=== PATIENT | male | born 1935 | race Caucasian/White ===

== ENCOUNTER 2019-01-13 14:02 | Observation (INO) ==
[2019-01-13] MEDS ORDERED: 0.9 % Sodium Chloride 1,000 ML IVC ONE (16:16)
[2019-01-13] MEDS ORDERED: Isovue-370 500 ML BOTTLE IVP ONE (16:16)
--- NOTE | 2019-01-13 16:28 | Emergency Department Note ---
Disposition Clinical Impression: Presacral mass, Rectal pain Disposition: Admitted As Inpatient Condition: Fair Referrals: Tony Shaffer MD [Primary Care Provider] - Forms: ED Satisfaction Letter, Work/School Release Time of Disposition: 21:28 General Adult HPI - General Chief complaint: ED Abdominal Pain Stated complaint: Rectal pain needs ct Time Seen by Provider: 01/13/19 16:13 Source: patient, family Mode of arrival: ambulatory Limitations: no limitations Nursing Notes Reviewed: Yes Vital Signs Reviewed: Yes - History of Present Illness HPI Narrative: patient presents to the ED with rectal pain. Has a h/o rectal cancer and is s/p rectal removal and has ostomy. Patient states had an abscess a few months ago that was needle aspirated in the ED. He saw Dr. Neves with oncology today and was sent over for CT abd/pelvis. Patient reports increasing pain in his rectum and LEFT buttock. HE denies fever, chills, chest pain, shortness of breath. No abdominal pain, n/v or increase from ostomy output. states they wanted to make sure there wasn't a deeper abscess Pain Scale: 8 - Related Data Home Medications Medication Instructions Recorded Confirmed Albuterol Neb [AccuNeb] 0.63 mg IH Q6H PRN 01/22/17 01/13/19 Albuterol Sulfate [Albuterol 2 puff IH BID 01/22/17 01/13/19 Inhaler] Clopidogrel [Plavix] 75 mg PO DAILY 01/22/17 01/13/19 Cyanocobalamin (B-12) [Vitamin B12] 3,000 mcg PO DAILY 01/22/17 01/13/19 Finasteride [Proscar] 5 mg PO DAILY 01/22/17 01/13/19 Fluticasone/Salmeterol [Advair 1 puff IH BID 01/22/17 01/13/19 250-50 Diskus] Montelukast [Singulair] 10 mg PO DAILY 01/22/17 01/13/19 Multivitamin [Multivitamins] 1 tab PO DAILY 04/13/17 01/13/19 Saxagliptin HCl [Onglyza] 2.5 mg PO DAILY 04/13/17 01/13/19 Apixaban [Eliquis] 2.5 mg PO BID 03/03/18 01/13/19 Docusate Sodium [Dok] 100 mg PO BID 03/03/18 01/13/19 Previous Rx's Medication Instructions Recorded RX: Simethicone [Bicarsim] 80 mg PO BID #80 tablet 05/03/18 RX: Oxybutynin [Ditropan] 5 mg PO TID #90 tablet 06/24/18 Cyclobenzaprine [Flexeril] 10 mg PO BID PRN #60 tablet 11/25/18 RX: Gabapentin [Neurontin] 300 mg PO TID #90 capsule 11/25/18 RX: Morphine Immed Rel [Morphine 15 mg PO Q4HR PRN 30 Days #180 tab 11/25/18 Sulfate] RX: Gabapentin [Neurontin] 300 mg PO TID 30 Days #90 capsule 12/28/18 Allergies Allergy/AdvReac Type Severity Reaction Status Date / Time lisinopril Allergy Joint Pain Verified 01/13/19 14:27 lovastatin Allergy Hives Verified 01/13/19 14:27 nitrofurantoin Allergy Hives Verified 01/13/19 14:27 [From Macrobid] rosuvastatin Allergy Hives Verified 01/13/19 14:27 simvastatin Allergy Hives Verified 01/13/19 14:27 Review of Systems: As reviewed in the HPI. All other systems reviewed are negative or normal. All systems ED: reviewed and negative except as stated. Review of Systems: As Per HPI Past Medical History - Past Medical History Attestation: Yes The following information was validated with the patient. Source: patient Medical history: Reports: atrial fibrillation, cancer, COPD Surgical history: Reports: non-contributory, other Psychiatric history: Reports: no psych history - Social History Smoking Status: Current every day smoker Smokeless Tobacco Status: No Alcohol use: Reports: occasionally Drug use: Reports: none Physical Exam CONSTITUTIONAL: [well appearing, alert and in no acute distress] EYES: [EOMI, clear conjunctiva, PERRLA] HENT: [Normocephalic, atraumatic, moist mucus membranes, normal oropharynx] NECK: [normal inspection, full ROM, trachea midline, no obvious swelling] PULMONARY: [normal lung sounds bilaterally, normal chest rise and fall, no respiratory distress or stridor, no wheezes, no rales, no rhonchi CARDIOVASCULAR: [regular rate, regular rhythm, normal heart sounds, no murmurs, distal extremities are warm and well perfused] GASTROINSTESTINAL: [soft, non-tender, non-rigid, non-distended, no guarding, no rebound, normal bowel sounds, ostomy output normal with ostomy pink and viable] GENITOURINARY/RECTAL: [patient has a small round mass overlying the LEFT ischial tuberosity that is tender, no obvious external signs of infection] NEUROLOGIC: [Alert, oriented x3, normal speech, moves all extremities] EXTREMITIES: [Normal inspection, full ROM, no tenderness, no pedal edema, normal capillary refill] MUSCULOSKELETAL: [no gross deformities, atraumatic] SKIN: [No cyanosis, no diaphoresis, normal color, warm, no rash] PSYCHIATRIC: [normal mood and affect] Course Course Narrative: will get CT to eval for abscess CT shows a pre-sacral fluid collection c/w previously found collection that was drained. Will start on ABX and admit overnight for obs and IR drainage in the AM. Does not meet sepsis criteria. Vital Signs Temperature 97.9 F 01/13/19 14:24 Pulse Rate 102 01/13/19 14:24 Respiratory Rate 16 01/13/19 14:24 Blood Pressure 126/74 01/13/19 14:24 O2 Sat by Pulse Oximetry 95 01/13/19 14:24 Temperature 98.4 F 01/13/19 18:14 Pulse Rate 102 01/13/19 20:36 Respiratory Rate 18 01/13/19 20:36 Blood Pressure 169/103 01/13/19 20:36 O2 Sat by Pulse Oximetry 98 01/13/19 20:36 Oxygen Delivery Oxygen Delivery Room Air Medical Decision Making - Lab Data Result diagrams: 01/13/19 16:31 01/13/19 16:31 Lab Results 01/13/19 01/13/19 01/13/19 Range/Units 16:31 16:31 16:31 WBC 8.1 (4.3-11.1) K/mcL RBC 4.79 (4.19-5.50) M/mcL Hgb 13.6 (12.9-16.9) g/dL Hct 41.3 (37.5-50.1) % MCV 86.2 (83.0-100.0) fL MCH 28.4 (28.0-33.3) pg MCHC 32.9 (31.6-35.5) g/dL RDW 16.2 H (11.5-14.5) % Plt Count 223 (140-400) K/mcL MPV 10.8 (9.4-12.4) fL Immature Gran % 0.4 (0-4) % Seg Neutrophils % 75.5 % Lymphocytes % 12.7 % Monocytes % 7.9 % Eosinophils % 3.0 % Basophils % 0.5 % Neutrophils # 6.1 (1.6-8.9) K/mcL Lymphocytes # 1.0 (0.6-4.6) K/mcL Monocytes # 0.6 (0.0-1.3) K/mcL Eosinophils # 0.2 (0.0-0.6) K/mcL Basophils # 0.0 (0.0-0.2) K/mcL PT 12.0 (9.4-12.1) Seconds INR 1.1 Sodium 138 (136-145) mEq/L Potassium 3.8 (3.5-5.1) mEq/L Chloride 102 (98-107) mEq/L Carbon Dioxide 30 H (23-29) mEq/L BUN 18 (8-23) mg/dL Creatinine 0.91 (0.70-1.30) mg/dL Est GFR ( Amer) > 60 (> 60) Est GFR (Non-Af Amer) > 60 (> 60) BUN/Creatinine Ratio 20 (6-26) Glucose 222 H (70-105) mg/dL Calculated Osmolality 295 (280-300) Lactic Acid (0.5-2.2) mmol/L Calcium 9.3 (8.6-10.3) mg/dL Total Bilirubin 0.4 (0.3-1.0) mg/dL Direct Bilirubin 0.1 (0.0-0.2) mg/dL Indirect Bilirubin 0.3 (0.0-1.2) mg/dL AST 9 L (13-39) Units/L ALT 7 (7-52) Units/L Alkaline Phosphatase 63 (34-104) Units/L Serum Total Protein 7.4 (6.4-8.9) g/dL Albumin 4.2 (3.5-5.7) g/dL Globulin 3.2 (2.4-3.5) g/dL Albumin/Globulin Ratio 1.3 (1.1-2.2) Lipase 44 (11-82) Units/L Urine Color (Yellow) Urine Clarity (Clear) Urine pH (5.0-8.0) pH Units Ur Specific [place] (1.010-1.025) Urine Protein (Neg-Trace) mg/dL Urine Glucose (UA) (Normal) mg/dL Urine Ketones (Negative) mg/dL Urine Blood (Negative) Urine Nitrite (Negative) Urine Bilirubin (Negative) Urine Urobilinogen (Normal) mg/dL Ur Leukocyte Esterase (Negative) Urine Microscopic RBC (0-3) per hpf Urine Microscopic WBC (0-3) per hpf Ur Squamous Epith Cells (None-Few) per lpf Urine Bacteria (None-Few) per hpf Hyaline Casts (None-Few) per lpf Ur Culture Indicated? (NO) 01/13/19 01/13/19 01/13/19 Range/Units 16:31 17:23 20:14 WBC (4.3-11.1) K/mcL RBC (4.19-5.50) M/mcL Hgb (12.9-16.9) g/dL Hct (37.5-50.1) % MCV (83.0-100.0) fL MCH (28.0-33.3) pg MCHC (31.6-35.5) g/dL RDW (11.5-14.5) % Plt Count (140-400) K/mcL MPV (9.4-12.4) fL Immature Gran % (0-4) % Seg Neutrophils % % Lymphocytes % % Monocytes % % Eosinophils % % Basophils % % Neutrophils # (1.6-8.9) K/mcL Lymphocytes # (0.6-4.6) K/mcL Monocytes # (0.0-1.3) K/mcL Eosinophils # (0.0-0.6) K/mcL Basophils # (0.0-0.2) K/mcL PT (9.4-12.1) Seconds INR Sodium (136-145) mEq/L Potassium (3.5-5.1) mEq/L Chloride (98-107) mEq/L Carbon Dioxide (23-29) mEq/L BUN (8-23) mg/dL Creatinine (0.70-1.30) mg/dL Est GFR ( Amer) (> 60) Est GFR (Non-Af Amer) (> 60) BUN/Creatinine Ratio (6-26) Glucose (70-105) mg/dL Calculated Osmolality (280-300) Lactic Acid 2.3 H 1.8 (0.5-2.2) mmol/L Calcium (8.6-10.3) mg/dL Total Bilirubin (0.3-1.0) mg/dL Direct Bilirubin (0.0-0.2) mg/dL Indirect Bilirubin (0.0-1.2) mg/dL AST (13-39) Units/L ALT (7-52) Units/L Alkaline Phosphatase (34-104) Units/L Serum Total Protein (6.4-8.9) g/dL Albumin (3.5-5.7) g/dL Globulin (2.4-3.5) g/dL Albumin/Globulin Ratio (1.1-2.2) Lipase (11-82) Units/L Urine Color [place] A (Yellow) Urine Clarity Clear (Clear) Urine pH 5.5 (5.0-8.0) pH Units Ur Specific [place] 1.013 (1.010-1.025) Urine Protein Negative (Neg-Trace) mg/dL Urine Glucose (UA) Normal (Normal) mg/dL Urine Ketones Negative (Negative) mg/dL Urine Blood Negative (Negative) Urine Nitrite Positive A (Negative) Urine Bilirubin Small H (Negative) Urine Urobilinogen Normal (Normal) mg/dL Ur Leukocyte Esterase Trace H (Negative) Urine Microscopic RBC 0-3 (0-3) per hpf Urine Microscopic WBC 0-3 (0-3) per hpf Ur Squamous Epith Cells Moderate H (None-Few) per lpf Urine Bacteria None Seen (None-Few) per hpf Hyaline Casts None Seen (None-Few) per lpf Ur Culture Indicated? YES A (NO) Attestation Statement - Attestation Attestation: Resident Attestation: I examined this patient and my medical decision making was reviewed with the Resident Physician. I agree with the documented findings, disposition and treatment plan as described except to the extent set forth below. We independently had [id number] contact with the patient. Patient presenting for evaluation of pain to the left gluteus as well as rectal pain. Patient history of rectal cancer as well as surgery. Patient with drainage of fluid from this area in the past. Patient concern for reflection of this fluid. On exam patient has tenderness to left shield tuberosity region. No overlying erythema or drainage. The patient's rectal pain he states has been getting better over the last 1-2 days. Further workup in regards to possible abscess has been initiated. CT scan concerning for possible cellulitis as well as presacral fluid collection with abscess not being able to be ruled out. Patient is not febrile and is not systemically ill. Given the fat stranding and concern for cellulitis as well as fat stranding around the fluid collection concern. Unable to rule out abscess at this time. Patient will be placed on antibiotics. Patient will undergo further evaluation with the hospital. Patient admitted to the hospital service.
[2019-01-13 16:44] LABS: Basophils % 0.5 %; Eosinophils # 0.2 K/mcL (0.0-0.6); Hematocrit 41.3 % (37.5-50.1); Hemoglobin 13.6 g/dL (12.9-16.9); Immature Granulocytes % 0.4 % (0-4); Lymphocytes % 12.7 %; Mean Corpuscular HGB Conc 32.9 g/dL (31.6-35.5); Mean Corpuscular Hemoglobin 28.4 pg (28.0-33.3); Mean Corpuscular Volume 86.2 fL (83.0-100.0); Mean Platelet Volume 10.8 fL (9.4-12.4); Monocytes # 0.6 K/mcL (0.0-1.3); Monocytes % 7.9 %; Neutrophils # 6.1 K/mcL (1.6-8.9); Platelet Count 223 K/mcL (140-400); Red Blood Count 4.79 M/mcL (4.19-5.50); Red Cell Distribution Width 16.2 % (11.5-14.5); Segmented Neutrophils % 75.5 %
[2019-01-13 16:51] LABS: INR 1.1
[2019-01-13 17:04] LABS: Alanine Aminotransferase 7 Units/L (7-52); Albumin 4.2 g/dL (3.5-5.7); Albumin/Globulin Ratio 1.3 (1.1-2.2); Alkaline Phosphatase 63 Units/L (34-104); Aspartate Amino Transferase 9 Units/L (13-39); BUN/Creatinine Ratio 20 (6-26); Bilirubin,Direct 0.1 mg/dL (0.0-0.2); Bilirubin,Indirect 0.3 mg/dL (0.0-1.2); Bilirubin,Total 0.4 mg/dL (0.3-1.0); Blood Urea Nitrogen 18 mg/dL (8-23); Calcium 9.3 mg/dL (8.6-10.3); Carbon Dioxide 30 mEq/L (23-29); Chloride 102 mEq/L (98-107); Globulin 3.2 g/dL (2.4-3.5); Glucose 222 mg/dL (70-105); Lipase 44 Units/L (11-82); Osmolality,Calculated 295 (280-300); Potassium 3.8 mEq/L (3.5-5.1); Sodium 138 mEq/L (136-145); Total Protein 7.4 g/dL (6.4-8.9); eGFR For Non-African Americans > 60 (> 60)
[2019-01-13 17:42] LABS: Bilirubin,Urine Small (Negative); Blood,Urine Negative (Negative); Clarity,Urine Clear (Clear); Color,Urine Orange (Yellow); Glucose,Urine (UA) Normal (Normal); Ketones,Urine Negative (Negative); Leukocyte Esterase,Urine Trace (Negative); Nitrite,Urine Positive (Negative); PH,Urine 5.5 pH Units (5.0-8.0); Protein,Urine Negative (Neg-Trace); Specific Gravity,Urine 1.013 (1.010-1.025); Urobilinogen,Urine Normal (Normal)
[2019-01-13 17:45] LABS: Bacteria,Urine None Seen per hpf (None-Few); Hyaline Casts,Urine None Seen per lpf (None-Few); RBC,Urine 0-3 per hpf (0-3); Squamous Epithelial Cell,Urine Moderate per lpf (None-Few); WBC,Urine 0-3 per hpf (0-3)
[2019-01-13] MEDS ORDERED: *HR* Morphine Immed Rel 15 MG TABLET PO STA (18:09)
[2019-01-13] MEDS ORDERED: Piperacillin/Tazobactam 3.375 GM in Water for inj. (sterile) 20 ML 20 ML IVP ONE (19:43)
[2019-01-13] MEDS ORDERED: Ondansetron 4 MG/2 ML VIAL IVP PRN (21:07)
[2019-01-13] MEDS ORDERED: Acetaminophen 325 MG TABLET PO PRN (21:07)
[2019-01-13] MEDS ORDERED: Naloxone 0.4 MG/ML INJ IVP PRN (21:07)
[2019-01-13] MEDS ORDERED: Albuterol Neb 0.63 MG/3 ML VIAL IH PRN (21:08)
[2019-01-13] MEDS ORDERED: *HR* Dextrose 50 % in Water (Syg) 50 ML SYRINGE IVP PRN (23:31)
[2019-01-13] MEDS ORDERED: D5% in Water 1,000 ML IVC PRN (23:31)
[2019-01-13] MEDS ORDERED: Dextrose Gel 15 GM/37.5 ML TUBE PO PRN ×2 (23:31)
--- NOTE | 2019-01-13 23:31 | Internal Med History&Physical ---
Date of Encounter: 01/13/19 Time of Encounter: 23:28 Internal Medicine - H&P: HPI Chief complaint: Sacral Pain Admitted From: Emergency Dept Plans for Post Hospital Care: Home History of present illness: Mr. Goodrich is a 83 year old male with history of rectal cancer who presents with sacral pain. Patient states he has been worsening over the last several days. He states the pain is tracking down his left leg. He states this feels similar to his previous episode where he had fluid drained out of this area. He states he was diagnosed with rectal cancer in September and had surgery at that time. He states he is not on any chemotherapy. He denies any fever, chills, drainage from this area. He denies chest pain, shortness of breath. Discussed with patient and he wishes to be full code. 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 Internal Medicine - H&P: Meds Albuterol Neb [AccuNeb] 0.63 mg IH Q6H PRN 01/22/17 [History] Albuterol Sulfate [Albuterol Inhaler] 2 puff IH BID 01/22/17 [History] Clopidogrel [Plavix] 75 mg PO DAILY 01/22/17 [History] Cyanocobalamin (B-12) [Vitamin B12] 3,000 mcg PO DAILY 01/22/17 [History] Finasteride [Proscar] 5 mg PO DAILY 01/22/17 [History] Fluticasone/Salmeterol [Advair 250-50 Diskus] 1 puff IH BID 01/22/17 [History] Montelukast [Singulair] 10 mg PO DAILY 01/22/17 [History] Multivitamin [Multivitamins] 1 tab PO DAILY 04/13/17 [History] Saxagliptin HCl [Onglyza] 2.5 mg PO DAILY 04/13/17 [History] Apixaban [Eliquis] 2.5 mg PO BID 03/03/18 [History] Docusate Sodium [Dok] 100 mg PO BID 03/03/18 [History] Simethicone [Bicarsim] 80 mg PO BID #80 tablet 05/03/18 [Rx] Oxybutynin [Ditropan] 5 mg PO TID #90 tablet 06/24/18 [Rx] Cyclobenzaprine [Flexeril] 10 mg PO BID PRN #60 tablet 11/25/18 [Rx] Gabapentin [Neurontin] 300 mg PO TID #90 capsule 11/25/18 [Rx] Morphine Immed Rel [Morphine Sulfate] 15 mg PO Q4HR PRN 30 Days #180 tab 11/25/18 [Rx] Gabapentin [Neurontin] 300 mg PO TID 30 Days #90 capsule 12/28/18 [Rx] Allergy/AdvReac Type Severity Reaction Status Date / Time lisinopril Allergy Joint Pain Verified 01/13/19 14:27 lovastatin Allergy Hives Verified 01/13/19 14:27 nitrofurantoin Allergy Hives Verified 01/13/19 14:27 [From Macrobid] rosuvastatin Allergy Hives Verified 01/13/19 14:27 simvastatin Allergy Hives Verified 01/13/19 14:27 All Systems PM: A 10-system review of systems was performed and is negative for pertinent findings except as documented above in the HPI. Review of systems: 10 point review of systems was obtained and is negative other than stated. - Constitutional Constitutional: no chills, no fever(s) - Cardiovascular Cardiovascular ROS IM: no chest pain - Respiratory Respiratory: no dyspnea - Musculoskeletal Musculoskeletal ROS IM: back pain (sacrum) - Constitutional Vitals: Temp Pulse Resp BP Pulse Ox 98.7 F 103 17 133/84 98 01/13/19 22:43 01/13/19 22:43 01/13/19 22:43 01/13/19 22:43 01/13/19 22:43 General appearance: Present: A&O X 3, pleasant, no acute distress Exam: . - Head Head exam: Present: atraumatic, normal inspection, normocephalic - Eye Eye exam: Present: EOMI, PERRL - ENT ENT exam: Present: mucous membranes moist - Respiratory Respiratory exam: Present: CTAB. Absent: rales, rhonchi, wheezes - Cardiovascular Cardiovascular exam: Present: tachycardia. Absent: gallop, rubs, systolic murmur - GI/Abdominal GI/Abdominal exam: Present: normal bowel sounds, soft. Absent: distended, tenderness Additional comments: Colostomy present - Extremities Exam Extremities exam: Present: warm. Absent: pedal edema, tenderness - Back Exam Additional comments: No erythema or palpable fluid collection noted in the sacral area. Mildly tender to palpation. No erythema down the leg. - Neurological Exam Neurological exam: Present: alert, CN II-XII intact, oriented X3, no focal deficits - Psychiatric Psychiatric exam: Present: normal affect, normal mood - Skin Skin exam: Present: dry, intact, warm Internal Med - H&P Results - Labs CBC & Chem 7: 01/13/19 16:31 01/13/19 16:31 Labs: Short CBC 01/13/19 Range/Units 16:31 WBC 8.1 (4.3-11.1) K/mcL Hgb 13.6 (12.9-16.9) g/dL Hct 41.3 (37.5-50.1) % Plt Count 223 (140-400) K/mcL Neutrophils # 6.1 (1.6-8.9) K/mcL BMP 01/13/19 16:31 Sodium 138 Potassium 3.8 Chloride 102 Carbon Dioxide 30 H BUN 18 Creatinine 0.91 Glucose 222 H Calcium 9.3 Liver Function 01/13/19 Range/Units 16:31 Total Bilirubin 0.4 (0.3-1.0) mg/dL Direct Bilirubin 0.1 (0.0-0.2) mg/dL AST 9 L (13-39) Units/L ALT 7 (7-52) Units/L Alkaline Phosphatase 63 (34-104) Units/L Albumin 4.2 (3.5-5.7) g/dL Urine 01/13/19 Range/Units 17:23 Urine Color [place] A (Yellow) Urine Clarity Clear (Clear) Urine pH 5.5 (5.0-8.0) pH Units Ur Specific [place] 1.013 (1.010-1.025) Urine Protein Negative (Neg-Trace) mg/dL Urine Glucose (UA) Normal (Normal) mg/dL - Impressions ITS Impressions Abdomen/Pelvis CT 01/13/19 16:16 IMPRESSION: There is a nonspecific presacral fluid collection measuring 4.8 x 3.1 cm. That could represent a postsurgical seroma or hematoma. However, an abscess does remain a consideration. No other postsurgical studies are present to gauge stability of that collection. There is mild fat stranding within the subcutaneous fat within the gluteal region, which is nonspecific and likely of no clinical significance. Correlate with any clinical evidence of cellulitis. No abscesses are found within the soft tissues of the gluteal region. Redemonstration of an indeterminate low-density lesion within the superior pole left kidney. Continued surveillance of that is recommended. Bilateral nonobstructing punctate nephrolithiasis. D/ / Lukas Avitia MD / Lukas Avitia MD Interpreting Provider: Lukas Avitia MD - Assessment and Plan (1) Postoperative seroma Current Visit: Yes Status: Suspected Assessment and plan: CT shows a presacral fluid collection measuring 4.8 x 3.1 cm. Likely indicative of a postsurgical seroma, hematoma is also considered given the patient is on anticoagulation however CBC is stable. Abscess is also on the differential however patient has no signs or symptoms of infection so this is less likely. Patient has had this before and has been drained by IR. Keep patient nothing by mouth consult interventional radiology for drainage in the morning. Qualifiers: Surgical complication system/body Area: musculoskeletal system Procedure type: non-musculoskeletal Qualified Code(s): M96.843 - Postprocedural seroma of a musculoskeletal structure following other procedure (2) COPD (chronic obstructive pulmonary disease) Current Visit: Yes Status: Acute Assessment and plan: Stable. No evidence of acute exacerbation. Continue home medications. Qualifiers: COPD type: unspecified COPD Qualified Code(s): J44.9 - Chronic obstructive pulmonary disease, unspecified (3) A-fib Current Visit: Yes Status: Acute Assessment and plan: EKG reviewed shows atrial fibrillation, is not on any rate controlling medications at home. We will start low-dose beta ariadne. Hold anticoagulation in anticipation of procedure. Qualifiers: Atrial fibrillation type: paroxysmal Qualified Code(s): I48.0 - Paroxysmal atrial fibrillation (4) Type 2 diabetes mellitus Current Visit: Yes Status: Acute Assessment and plan: Blood sugar under good control at this time. Sliding scale insulin coverage. Adjust as necessary. Qualifiers: Diabetes mellitus fci insulin use: without fci use Diabetes mellitus complication status: without complication Qualified Code(s): E11.9 - Type 2 diabetes mellitus without complications (5) Rectal cancer Current Visit: No Status: Acute Assessment and plan: History of. Not on any treatment at this time and does not wish to continue with any treatment. He states he is much improved since surgery. Continued outpatient follow-up with oncology. (6) DVT prophylaxis Current Visit: Yes Status: Acute Assessment and plan: EPCDs - Time Spent With Patient Total time spent is greater than 50% in coordination of care (as documented) at patient's floor/unit and/or counseling patient:
[2019-01-14] MEDS: Insulin LISPRO 300 UNITS/3 ML VIAL SQ SCH ×2 (00:38→06:08)
[2019-01-14] MEDS: *HR* Morphine Immed Rel 15 MG TABLET PO PRN ×2 (02:41→11:40)
[2019-01-14 05:22] LABS: Basophils % 0.6 %; Eosinophils # 0.4 K/mcL (0.0-0.6); Eosinophils % 5.4 %; Hematocrit 38.5 % (37.5-50.1); Hemoglobin 12.8 g/dL (12.9-16.9); Immature Granulocytes % 0.4 % (0-4); Lymphocytes # 0.9 K/mcL (0.6-4.6); Lymphocytes % 13.6 %; Mean Corpuscular HGB Conc 33.2 g/dL (31.6-35.5); Mean Corpuscular Hemoglobin 28.3 pg (28.0-33.3); Mean Platelet Volume 10.9 fL (9.4-12.4); Monocytes # 0.7 K/mcL (0.0-1.3); Monocytes % 10.2 %; Neutrophils # 4.8 K/mcL (1.6-8.9); Platelet Count 207 K/mcL (140-400); Red Blood Count 4.53 M/mcL (4.19-5.50); Red Cell Distribution Width 16.4 % (11.5-14.5); Segmented Neutrophils % 69.8 %
[2019-01-14 05:24] LABS: Prothrombin Time 11.3 Seconds (9.4-12.1)
[2019-01-14 05:40] LABS: BUN/Creatinine Ratio 21 (6-26); Blood Urea Nitrogen 16 mg/dL (8-23); Calcium 8.7 mg/dL (8.6-10.3); Carbon Dioxide 27 mEq/L (23-29); Chloride 108 mEq/L (98-107); Glucose 119 mg/dL (70-105); Magnesium 1.8 mg/dL (1.6-2.6); Osmolality,Calculated 296 (280-300); Potassium 3.7 mEq/L (3.5-5.1); Sodium 142 mEq/L (136-145); eGFR For Non-African Americans > 60 (> 60)
[2019-01-14] MEDS ORDERED: Finasteride 5 MG TABLET PO SCH (09:00)
[2019-01-14] MEDS ORDERED: Metoprolol XL (24 HR) Succ 25 MG TAB.ER.24H PO SCH (09:00)
[2019-01-14] MEDS: Gabapentin 300 MG CAPSULE PO SCH ×2 (09:10→16:02)
[2019-01-14] MEDS ORDERED: Budesonide/Formoterol 160/4.5 1 PUFF INH IH SCH (10:00)
--- NOTE | 2019-01-14 10:20 | Internal Med Progress Note ---
<Trino Ramesh N - Last Filed: 01/14/19 13:32> Hospitalist Progress Note - Encounter Date of Encounter: 01/14/19 Time of Encounter: 10:20 - Subjective Interval History: Patient seen and examined at bedside. complains of sharp burning pain in the chiquita-sacral and gluteal region. Pain radiates down the posterior aspect of the leg to the level of the knee. Interventional radiology reviewed the images and do not believe the likely seroma warrants drainage at this time. Low suspicion for abscess. Previously drained in November and is similar in size as then. Patient denies fevers or chills. - Exam Vitals: Temp Pulse Resp BP Pulse Ox 98.7 F 93 16 151/77 96 01/14/19 08:34 01/14/19 08:34 01/14/19 10:12 01/14/19 08:34 01/14/19 10:12 Exam: General: Alert and oriented, no acute distress, frail appearing HEENT: Head is atraumatic and normocephalic, pupils are equal and round, and extraocular muscles are intact Neck: no JVD, trachea midline Chest: symmetrical chest wall rise, no tenderness to palpation Cardiovascular: RRR, no murmurs Respiratory: CTA b/l, no rales ronchi or wheezing Abdomen: soft nontender, no guarding or rigidity Extremities: no cyanosis, clubbing or edema. Pain on palpation in the left gluteal region. Pain with straight leg raise of left leg. Skin: no jaundice, no lesions Neurological: no obvious focal neurological deficits. straight leg raise positive on left, negative on right. Psych: appropriate mood and affect - Assessment and Plan (1) Sciatica Current Visit: Yes Status: Acute Assessment and Plan: Patient has left sided gluteal pain, worse with palpation of the region of the piriformis muscle, with "burning" pain that radiates down the posterior aspect of his leg to the level of his knee. Pain was also improved with his home dose flexeril Positive straight leg raise on the left, negative on right strength and sensation intact bilaterally otherwise, reflexes intact Suspect sciatic nerve pain patient is on gabapentin, unknown if for diabetic neuropathy vs. previously diagnosed sciatica. Will continue patient's home gabapentin and flexeril Obtain MR lumbar spine to rule out impingement or stenosis f/u outpatient for continued management, PT, and pain management (2) Seroma Current Visit: Yes Status: Acute Assessment and Plan: redemonstration of previously drained seroma measuring 4.8 x 3.1. do not suspect abscess as patient is afebrile and denies chills. Interventional radiology reviewed the images and do not recommend draining the seroma at this time Do not suspect patient's gluteal pain radiating posteriorly to the knee is secondary to the seroma, sciatic nerve pain is higher on the differential (3) COPD (chronic obstructive pulmonary disease) Current Visit: Yes Status: Acute Assessment and Plan: not in exacerbation continue home meds (4) A-fib Current Visit: Yes Status: Acute Assessment and Plan: startedlow dose beta ariadne IR does not recommend procedure, will restart anticoagulation (5) Type 2 diabetes mellitus Current Visit: Yes Status: Acute Assessment and Plan: Low dose SSI Q6 accuchecks (6) DVT prophylaxis Current Visit: Yes Status: Acute Assessment and Plan: restarted home anticoagulation - Time Spent with Patient Total time spent is greater than 50% in coordination of care (as documented) at patient's floor/unit and/or counseling patient: Internal Medicine: Result - Labs CBC & Chem 7: 01/14/19 04:48 01/14/19 04:48 Labs: Short CBC 01/13/19 01/14/19 Range/Units 16:31 04:48 WBC 8.1 6.9 (4.3-11.1) K/mcL Hgb 13.6 12.8 L (12.9-16.9) g/dL Hct 41.3 38.5 (37.5-50.1) % Plt Count 223 207 (140-400) K/mcL Neutrophils # 6.1 4.8 (1.6-8.9) K/mcL BMP 01/13/19 01/14/19 16:31 04:48 Sodium 138 142 Potassium 3.8 3.7 Chloride 102 108 H Carbon Dioxide 30 H 27 BUN 18 16 Creatinine 0.91 0.75 Glucose 222 H 119 H Calcium 9.3 8.7 Liver Function 01/13/19 Range/Units 16:31 Total Bilirubin 0.4 (0.3-1.0) mg/dL Direct Bilirubin 0.1 (0.0-0.2) mg/dL AST 9 L (13-39) Units/L ALT 7 (7-52) Units/L Alkaline Phosphatase 63 (34-104) Units/L Albumin 4.2 (3.5-5.7) g/dL Urine 01/13/19 Range/Units 17:23 Urine Color [place] A (Yellow) Urine Clarity Clear (Clear) Urine pH 5.5 (5.0-8.0) pH Units Ur Specific [place] 1.013 (1.010-1.025) Urine Protein Negative (Neg-Trace) mg/dL Urine Glucose (UA) Normal (Normal) mg/dL - ABG Interpretation ABG results: PT/INR, D-dimer PT 11.3 Seconds (9.4-12.1) 01/14/19 04:48 - Impressions Impressions Abdomen/Pelvis CT 01/13/19 16:16 IMPRESSION: There is a nonspecific presacral fluid collection measuring 4.8 x 3.1 cm. That could represent a postsurgical seroma or hematoma. However, an abscess does remain a consideration. No other postsurgical studies are present to gauge stability of that collection. There is mild fat stranding within the subcutaneous fat within the gluteal region, which is nonspecific and likely of no clinical significance. Correlate with any clinical evidence of cellulitis. No abscesses are found within the soft tissues of the gluteal region. Redemonstration of an indeterminate low-density lesion within the superior pole left kidney. Continued surveillance of that is recommended. Bilateral nonobstructing punctate nephrolithiasis. D/ / Lukas Avitia MD / Lukas Avitia MD Interpreting Provider: Lukas Avitia MD Consult Discharge Plan - Plan Instructions: Sciatica (GEN) Referrals: Tony Shaffer MD [Primary Care Provider] - Prescriptions: PredniSONE [Deltasone] See Taper PO TAPER 15 Days #30 tablet <Oleg Mohr - Last Filed: 01/14/19 18:11> Hospitalist Progress Note - Encounter Date of Encounter: 01/14/19 - Exam Vitals: Temp Pulse Resp BP Pulse Ox 98.0 F 79 15 104/63 95 01/14/19 15:16 01/14/19 15:16 01/14/19 15:16 01/14/19 15:16 01/14/19 15:16 - Assessment and Plan (1) Rectal cancer Current Visit: No Status: Acute (2) COPD (chronic obstructive pulmonary disease) Current Visit: Yes Status: Acute (3) A-fib Current Visit: Yes Status: Acute (4) Type 2 diabetes mellitus Current Visit: Yes Status: Acute (5) Postoperative seroma Current Visit: Yes Status: Suspected (6) Sciatica Current Visit: Yes Status: Acute (7) Tobacco abuse Current Visit: Yes Status: Chronic - Time Spent with Patient Total time spent is greater than 50% in coordination of care (as documented) at patient's floor/unit and/or counseling patient: Internal Medicine: Result - Labs CBC & Chem 7: 01/14/19 04:48 01/14/19 04:48 Labs: Short CBC 01/14/19 Range/Units 04:48 WBC 6.9 (4.3-11.1) K/mcL Hgb 12.8 L (12.9-16.9) g/dL Hct 38.5 (37.5-50.1) % Plt Count 207 (140-400) K/mcL Neutrophils # 4.8 (1.6-8.9) K/mcL BMP 01/14/19 04:48 Sodium 142 Potassium 3.7 Chloride 108 H Carbon Dioxide 27 BUN 16 Creatinine 0.75 Glucose 119 H Calcium 8.7 - ABG Interpretation ABG results: PT/INR, D-dimer PT 11.3 Seconds (9.4-12.1) 01/14/19 04:48 - Impressions Impressions Abdomen/Pelvis CT 01/13/19 16:16 IMPRESSION: There is a nonspecific presacral fluid collection measuring 4.8 x 3.1 cm. That could represent a postsurgical seroma or hematoma. However, an abscess does remain a consideration. No other postsurgical studies are present to gauge stability of that collection. There is mild fat stranding within the subcutaneous fat within the gluteal region, which is nonspecific and likely of no clinical significance. Correlate with any clinical evidence of cellulitis. No abscesses are found within the soft tissues of the gluteal region. Redemonstration of an indeterminate low-density lesion within the superior pole left kidney. Continued surveillance of that is recommended. Bilateral nonobstructing punctate nephrolithiasis. D/ / Lukas Avitia MD / Lukas Avitia MD Interpreting Provider: Lukas Avitia MD Lumbar Spine MRI 01/14/19 12:10 IMPRESSION: 1. Small amount of nonspecific presacral fluid. No adjacent sacral marrow signal abnormality to suggest osteomyelitis. 2. Mild multilevel degenerative disc disease and facet hypertrophy. 3. No spinal canal stenosis. 4. Bilateral L2 through L4 neural foraminal narrowing greatest involving the left L4 neural foramen where it is moderate. D/ / Eder Naranjo / Eder Naranjo Interpreting Provider: Eder Naranjo - Attending Attestation See discharge summary of today. <Trino Ramesh N - Last Filed: 01/14/19 13:32> (3) COPD (chronic obstructive pulmonary disease) Qualifiers: COPD type: unspecified COPD Qualified Code(s): J44.9 - Chronic obstructive pulmonary disease, unspecified (4) A-fib Qualifiers: Atrial fibrillation type: paroxysmal Qualified Code(s): I48.0 - Paroxysmal atrial fibrillation (5) Type 2 diabetes mellitus Qualifiers: Diabetes mellitus fdc insulin use: without long term care administrator use Diabetes mellitus complication status: without complication Qualified Code(s): E11.9 - Type 2 diabetes mellitus without complications <Oleg Mohr A - Last Filed: 01/14/19 18:11> (2) COPD (chronic obstructive pulmonary disease) Qualifiers: COPD type: unspecified COPD Qualified Code(s): J44.9 - Chronic obstructive pulmonary disease, unspecified (3) A-fib Qualifiers: Atrial fibrillation type: paroxysmal Qualified Code(s): I48.0 - Paroxysmal atrial fibrillation (4) Type 2 diabetes mellitus Qualifiers: Diabetes mellitus long term care administrator insulin use: without fdc use Diabetes mellitus complication status: without complication Qualified Code(s): E11.9 - Type 2 diabetes mellitus without complications (5) Postoperative seroma Qualifiers: Surgical complication system/body Area: musculoskeletal system Procedure type: non-musculoskeletal Qualified Code(s): M96.843 - Postprocedural seroma of a musculoskeletal structure following other procedure (6) Sciatica Qualifiers: Laterality: left Qualified Code(s): M54.32 - Sciatica, left side
[2019-01-14 15:18] VITALS: BP 104/63
--- NOTE | 2019-01-14 17:24 | Discharge Summary ---
<Trino Ramesh N - Last Filed: 01/14/19 17:32> - NOTES TO OUTPATIENT PROVIDER Notes to Outpatient Provider: Follow up on sciatic nerve pain. patient DC'd on prednisone taper. May require outpatient physical therapy. continue to monitor Orders not resulted at time of discharge: Pending orders 01/13/19 17:23 Culture,Urine [RM] Stat 01/15/19 04:00 BMP [Basic Metabolic Panel] AM 0400 CBC [Complete Blood Count] [HEME] AM 0400 Magnesium AM 0400 Date of Encounter: 01/14/19 Time of Encounter: 17:22 - Discharge Diagnosis (1) Sciatica Priority: Primary Status: Acute Qualifiers: Laterality: left Qualified Code(s): M54.32 - Sciatica, left side (2) Seroma Priority: Secondary Status: Acute (3) COPD (chronic obstructive pulmonary disease) Priority: Secondary Status: Acute Qualifiers: COPD type: unspecified COPD Qualified Code(s): J44.9 - Chronic obstructive pulmonary disease, unspecified (4) A-fib Priority: Secondary Status: Acute Qualifiers: Atrial fibrillation type: paroxysmal Qualified Code(s): I48.0 - Paroxysmal atrial fibrillation (5) Type 2 diabetes mellitus Priority: Secondary Status: Acute Qualifiers: Diabetes mellitus half-way insulin use: without remote computer terminal operator use Diabetes mellitus complication status: without complication Qualified Code(s): E11.9 - Type 2 diabetes mellitus without complications Hospital course: Mr. Goodrich is a 83 year old male with a history of rectal cancer status post surgery with a postsurgical seroma which was drained in November 2018 who presented for chief complaint of pain in the gluteal region. Patient was advised to present to the emergency department for imaging. CT scan redemonstrated a likely seroma in the pelvis. Interventional radiology was consult that, IR did not believe that this was an abscess and would not benefit from drainage and that patient's pain was unlikely secondary to the fluid collection. On physical examination patient states that he had pain radiating in the gluteal region left of the sacrum which radiated posteriorly down to the level of the knee. Described as sharp and burning. On physical examination pain was exacerbated with straight leg raise and palpation of the piriformis muscle region. Suspect that patient's symptoms are secondary to sciatic nerve pain, they was no weakness, sensory change, or asymmetrical lower extremity reflexes. MRI lumbar spine was obtained to rule out impingement or stenosis. MRI unremarkable. Patient discharged to home with follow-up with his PCP for continued outpatient management and possible physical therapy referral. Discharged with prednisone taper. - Time Spent with Patient Total time spent providing and/or coordinating discharge services: - Discharge Medications Prescriptions: New PredniSONE [Deltasone] See Taper PO TAPER 15 Days #30 tablet Continue Saxagliptin HCl [Onglyza] 2.5 mg PO DAILY Multivitamin [Multivitamins] 1 tab PO DAILY Docusate Sodium [Dok] 100 mg PO BID Apixaban [Eliquis] 2.5 mg PO BID Simethicone [Bicarsim] 80 mg PO BID #80 tablet Oxybutynin [Ditropan] 5 mg PO TID #90 tablet Morphine Immed Rel [Morphine Sulfate] 15 mg PO Q4HR PRN 30 Days #180 tab PRN Reason: Pain Cyclobenzaprine [Flexeril] 10 mg PO BID PRN #60 tablet PRN Reason: Spasms Gabapentin [Neurontin] 300 mg PO TID 30 Days #90 capsule Albuterol Sulfate [Albuterol Inhaler] 2 puff IH BID Albuterol Neb [AccuNeb] 0.63 mg IH Q6H PRN PRN Reason: Shortness Of Breath Cyanocobalamin (B-12) [Vitamin B12] 3,000 mcg PO DAILY Montelukast [Singulair] 10 mg PO DAILY Clopidogrel [Plavix] 75 mg PO DAILY Finasteride [Proscar] 5 mg PO DAILY Fluticasone/Salmeterol [Advair 250-50 Diskus] 1 puff IH BID Home Medications: Albuterol Neb [AccuNeb] 0.63 mg IH Q6H PRN 01/22/17 [History] Albuterol Sulfate [Albuterol Inhaler] 2 puff IH BID 01/22/17 [History] Clopidogrel [Plavix] 75 mg PO DAILY 01/22/17 [History] Cyanocobalamin (B-12) [Vitamin B12] 3,000 mcg PO DAILY 01/22/17 [History] Finasteride [Proscar] 5 mg PO DAILY 01/22/17 [History] Fluticasone/Salmeterol [Advair 250-50 Diskus] 1 puff IH BID 01/22/17 [History] Montelukast [Singulair] 10 mg PO DAILY 01/22/17 [History] Multivitamin [Multivitamins] 1 tab PO DAILY 04/13/17 [History] Saxagliptin HCl [Onglyza] 2.5 mg PO DAILY 04/13/17 [History] Apixaban [Eliquis] 2.5 mg PO BID 03/03/18 [History] Docusate Sodium [Dok] 100 mg PO BID 03/03/18 [History] Simethicone [Bicarsim] 80 mg PO BID #80 tablet 05/03/18 [Rx] Oxybutynin [Ditropan] 5 mg PO TID #90 tablet 06/24/18 [Rx] Cyclobenzaprine [Flexeril] 10 mg PO BID PRN #60 tablet 11/25/18 [Rx] Morphine Immed Rel [Morphine Sulfate] 15 mg PO Q4HR PRN 30 Days #180 tab 11/25/18 [Rx] Gabapentin [Neurontin] 300 mg PO TID 30 Days #90 capsule 12/28/18 [Rx] PredniSONE [Deltasone] See Taper PO TAPER 15 Days #30 tablet 01/14/19 [Rx] Allergies/Adverse Reactions: Allergy/AdvReac Type Severity Reaction Status Date / Time lisinopril Allergy Joint Pain Verified 01/13/19 14:27 lovastatin Allergy Hives Verified 01/13/19 14:27 nitrofurantoin Allergy Hives Verified 01/13/19 14:27 [From Macrobid] rosuvastatin Allergy Hives Verified 01/13/19 14:27 simvastatin Allergy Hives Verified 01/13/19 14:27 Date of admission: 01/13/19 22:41 Primary care physician: Tony Shaffer MD Consults: 01/13/19 21:21 Consult to Interventional Radiology [CONS] Stat Consulting Provider: Radiology Interventional Cols Reason for Consult: Sacral fluid collection, has had drained before Call Completed: No Discharging clinician: Trino Ramesh Anticipated date of discharge: 01/14/19 - Constitutional Vitals: Temp Pulse Resp BP Pulse Ox 98.0 F 79 15 104/63 95 01/14/19 15:16 01/14/19 15:16 01/14/19 15:16 01/14/19 15:16 01/14/19 15:16 General appearance: Present: A&O X 3, pleasant, no acute distress Exam: General: Alert and oriented, no acute distress, frail appearing HEENT: Head is atraumatic and normocephalic, pupils are equal and round, and extraocular muscles are intact Neck: no JVD, trachea midline Chest: symmetrical chest wall rise, no tenderness to palpation Cardiovascular: RRR, no murmurs Respiratory: CTA b/l, no rales ronchi or wheezing Abdomen: soft nontender, no guarding or rigidity Extremities: no cyanosis, clubbing or edema. Pain on palpation in the left gluteal region. Pain with straight leg raise of left leg. Skin: no jaundice, no lesions Neurological: no obvious focal neurological deficits. straight leg raise positive on left, negative on right. Psych: appropriate mood and affect - Patient Status Disposition: Home, Self-Care Condition: Fair Overall status at discharge: patient is progressing back to baseline - Discharge Instructions Instructions: Sciatica (GEN) Follow Up With: Tony Shaffer MD [Primary Care Provider] - - Diet and Activity Activity: increase activity as tolerated Diet: advance to your usual diet <Oleg Mohr - Last Filed: 01/14/19 18:11> Orders not resulted at time of discharge: Pending orders 01/13/19 17:23 Culture,Urine [RM] Stat 01/15/19 04:00 BMP [Basic Metabolic Panel] AM 0400 CBC [Complete Blood Count] [HEME] AM 0400 Magnesium AM 0400 Date of Encounter: 01/14/19 - Discharge Diagnosis (1) Rectal cancer Priority: Secondary Status: Acute (2) COPD (chronic obstructive pulmonary disease) Status: Acute Qualifiers: COPD type: unspecified COPD Qualified Code(s): J44.9 - Chronic obstructive pulmonary disease, unspecified (3) A-fib Status: Acute Qualifiers: Atrial fibrillation type: paroxysmal Qualified Code(s): I48.0 - Paroxysmal atrial fibrillation (4) Type 2 diabetes mellitus Status: Acute Qualifiers: Diabetes mellitus half-way insulin use: without half-way use Diabetes mellitus complication status: without complication Qualified Code(s): E11.9 - Type 2 diabetes mellitus without complications (5) Postoperative seroma Status: Suspected Qualifiers: Surgical complication system/body Area: musculoskeletal system Procedure type: non-musculoskeletal Qualified Code(s): M96.843 - Postprocedural seroma of a musculoskeletal structure following other procedure (6) Sciatica Status: Acute Qualifiers: Laterality: left Qualified Code(s): M54.32 - Sciatica, left side (7) Tobacco abuse Priority: Secondary Status: Chronic Hospital course: Mr. Goodrich is a 83 year old male - Time Spent with Patient Total time spent providing and/or coordinating discharge services: 37min Date of admission: 01/13/19 22:41 Primary care physician: Tony Shaffer MD Consults: 01/13/19 21:21 Consult to Interventional Radiology [CONS] Stat Consulting Provider: Radiology Interventional Cols Reason for Consult: Sacral fluid collection, has had drained before Call Completed: No - Constitutional Vitals: Temp Pulse Resp BP Pulse Ox 98.0 F 79 15 104/63 95 01/14/19 15:16 01/14/19 15:16 01/14/19 15:16 01/14/19 15:16 01/14/19 15:16 - Attending Attestation I examined this patient and my medical decision-making was reviewed with the Resident Physician on 01/14/19. I agree with the documented findings, disposition and treatment plan as described except to the extent set forth below. Mr Goodrich has been in observation for leg pain. He was evaluated for fluid collection and was deemed not to need drained. Symptoms were consistent with sciatic pain. MRI negative for disc issue. He is now afebrile and ready for discharge home. Exam alert Comfortable Mucus membranes dry Heart reg No wheeze abd soft Plan D/C home today.
[2019-01-14] MEDS ORDERED: Insulin LISPRO 300 UNITS/3 ML VIAL SQ SCH (18:00)
[2019-01-14] MEDS ORDERED: Apixaban 2.5 MG TABLET PO SCH (21:00)
== END 2019-01-14 18:32 | disposition home or self-care (01) ==
LOC: EMEROOARM 14:02 → 3ANU 14:02 → SUATTDRO 22:41 → 3ANU 22:50
PROVIDERS: ADMIT Internal Medicine; ATTEND Internal Medicine

== ENCOUNTER 2019-08-25 13:16 | Inpatient (IN) ==
[2019-08-25] MEDS ORDERED: Ipratropium/Albuterol Neb 3 ML IH ONE (13:59)
[2019-08-25] MEDS ORDERED: methylPREDNISolone 125 MG/2 ML VIAL IVP ONE (13:59)
[2019-08-25] MEDS ORDERED: Furosemide 40 MG/4 ML VIAL IVP ONE (14:02)
[2019-08-25 14:21] LABS: Basophils % 0.6 %; Eosinophils # 0.2 K/mcL (0.0-0.6); Eosinophils % 4.4 %; Hematocrit 35.6 % (37.5-50.1); Hemoglobin 12.2 g/dL (12.9-16.9); Immature Granulocytes % 0.2 % (0-4); Lymphocytes # 0.6 K/mcL (0.6-4.6); Lymphocytes % 12.1 %; Mean Corpuscular HGB Conc 34.3 g/dL (31.6-35.5); Mean Corpuscular Hemoglobin 28.1 pg (28.0-33.3); Mean Platelet Volume 11.5 fL (9.4-12.4); Monocytes # 0.5 K/mcL (0.0-1.3); Monocytes % 9.4 %; Neutrophils # 3.5 K/mcL (1.6-8.9); Platelet Count 152 K/mcL (140-400); Red Blood Count 4.34 M/mcL (4.19-5.50); Red Cell Distribution Width 16.5 % (11.5-14.5); Segmented Neutrophils % 73.3 %; White Blood Count 4.8 K/mcL (4.3-11.1)
[2019-08-25 14:48] LABS: BUN/Creatinine Ratio 17 (6-26); Blood Urea Nitrogen 18 mg/dL (8-23); Calcium 9.1 mg/dL (8.6-10.3); Carbon Dioxide 32 mEq/L (23-29); Chloride 99 mEq/L (98-107); Glucose 156 mg/dL (70-105); Osmolality,Calculated 293 (280-300); Potassium 3.8 mEq/L (3.5-5.1); Sodium 139 mEq/L (136-145); Troponin I 0.06 ng/mL (< 0.04); eGFR For African Americans > 60 (> 60); eGFR For Non-African Americans > 60 (> 60)
[2019-08-25] MEDS ORDERED: Aspirin 325 MG TABLET PO ONE (14:50)
[2019-08-25] MEDS ORDERED: *HR* Heparin 5,000 UNIT/ML VIAL IVP ONE (15:23)
[2019-08-25] MEDS ORDERED: *HR* Heparin 5,000 UNIT/ML VIAL IVP PRN (15:23)
[2019-08-25] MEDS ORDERED: Heparin 25,000 UNIT/250 ML D5W 25,000 UNIT/250 ML IV.SOLN IVC SCH ×2 (15:30→23:15)
[2019-08-25] MEDS ORDERED: Naloxone 0.4 MG/ML INJ IVP PRN (15:56)
[2019-08-25] MEDS ORDERED: Ondansetron 4 MG/2 ML VIAL IVP PRN (15:56)
[2019-08-25] MEDS ORDERED: Dextrose Gel 15 GM/37.5 ML TUBE PO PRN ×2 (16:23)
[2019-08-25] MEDS ORDERED: D5% in Water 1,000 ML IVC PRN (16:23)
[2019-08-25] MEDS ORDERED: *HR* Dextrose 50 % in Water (Syg) 50 ML SYRINGE IVP PRN (16:23)
[2019-08-25 16:30] LABS: Heparin anti-factor XA UFH 0.43 IU/mL (0.30-0.70); INR 1.2; Prothrombin Time 13.5 Seconds (9.4-12.1)
[2019-08-25 16:36] LABS: Hematocrit 37.2 % (37.5-50.1); Hemoglobin 12.4 g/dL (12.9-16.9); Mean Corpuscular HGB Conc 33.3 g/dL (31.6-35.5); Mean Corpuscular Hemoglobin 27.6 pg (28.0-33.3); Mean Corpuscular Volume 82.7 fL (83.0-100.0); Mean Platelet Volume 11.5 fL (9.4-12.4); Platelet Count 159 K/mcL (140-400); Red Cell Distribution Width 16.7 % (11.5-14.5); White Blood Count 5.6 K/mcL (4.3-11.1)
[2019-08-25] MEDS: Ipratropium/Albuterol Neb 3 ML IH PRN (20:35)
[2019-08-25] MEDS: Budesonide/Formoterol 160/4.5 1 PUFF INH IH SCH (20:35)
[2019-08-25] MEDS ORDERED: Apixaban 2.5 MG TABLET PO SCH (21:00)
[2019-08-25] MEDS: Nicotine 21 MG PATCH.TD24 TD SCH (21:30)
[2019-08-25] MEDS: Insulin LISPRO 300 UNITS/3 ML VIAL SQ SCH (21:31)
[2019-08-25] MEDS: *HR* Heparin 5,000 UNIT/ML VIAL IVP PRN (23:44)
[2019-08-26 02:42] LABS: Hematocrit 33.5 % (37.5-50.1); Hemoglobin 10.6 g/dL (12.9-16.9); Immature Granulocytes % 0.3 % (0-4); Lymphocytes # 0.2 K/mcL (0.6-4.6); Lymphocytes % 6.8 %; Mean Corpuscular HGB Conc 31.6 g/dL (31.6-35.5); Mean Corpuscular Hemoglobin 27.1 pg (28.0-33.3); Mean Corpuscular Volume 85.7 fL (83.0-100.0); Mean Platelet Volume 12.7 fL (9.4-12.4); Monocytes # 0.2 K/mcL (0.0-1.3); Monocytes % 4.8 %; Neutrophils # 2.7 K/mcL (1.6-8.9); Platelet Count 152 K/mcL (140-400); Red Blood Count 3.91 M/mcL (4.19-5.50); Red Cell Distribution Width 16.8 % (11.5-14.5); Segmented Neutrophils % 88.1 %; White Blood Count 3.1 K/mcL (4.3-11.1)
[2019-08-26 03:00] LABS: BUN/Creatinine Ratio 18 (6-26); Blood Urea Nitrogen 24 mg/dL (8-23); Calcium 8.7 mg/dL (8.6-10.3); Carbon Dioxide 33 mEq/L (23-29); Chloride 96 mEq/L (98-107); Chol/HDL Ratio 2.8 (0-4.9); Cholesterol 122 mg/dL (< 200); Glucose 452 mg/dL (70-105); HDL Cholesterol 44 mg/dL (40-59); LDL Cholesterol,Calculated 69 mg/dL (0-99); Osmolality,Calculated 310 (280-300); Potassium 3.9 mEq/L (3.5-5.1); Sodium 138 mEq/L (136-145); Triglycerides 45 mg/dL (< 150); eGFR For African Americans > 60 (> 60); eGFR For Non-African Americans 50 (> 60)
[2019-08-26] MEDS ORDERED: Furosemide 40 MG/4 ML VIAL IVP SCH (09:00)
[2019-08-26 09:17] LABS: Estimated Average Glucose 183 mg/dl
[2019-08-26] MEDS: Nicotine 21 MG PATCH.TD24 TD SCH ×2 (09:27→12:36)
[2019-08-26] MEDS: Insulin LISPRO 300 UNITS/3 ML VIAL SQ SCH ×3 (09:28→17:09)
[2019-08-26] MEDS: *HR* Heparin 5,000 UNIT/ML VIAL IVP PRN (09:31)
[2019-08-26] MEDS ORDERED: Perflutren Lipid Microsphere 1.3 ML in 0.9 % Sodium Chloride 8.7 ML IVP ONE (10:24)
[2019-08-26] MEDS: Budesonide/Formoterol 160/4.5 1 PUFF INH IH SCH ×2 (10:26→20:01)
[2019-08-26] MEDS: Ipratropium/Albuterol Neb 3 ML IH PRN (11:29)
[2019-08-26] MEDS: Pantoprazole 40 MG VIAL IVP SCH ×2 (13:14→17:09)
[2019-08-26 15:04] LABS: Basophils % 0.2 %; Eosinophils # 0.1 K/mcL (0.0-0.6); Eosinophils % 1.9 %; Hemoglobin 11.1 g/dL (12.9-16.9); Immature Granulocytes % 0.3 % (0-4); Lymphocytes # 0.8 K/mcL (0.6-4.6); Lymphocytes % 12.3 %; Mean Corpuscular HGB Conc 33.6 g/dL (31.6-35.5); Mean Corpuscular Volume 83.3 fL (83.0-100.0); Mean Platelet Volume 11.8 fL (9.4-12.4); Monocytes # 0.6 K/mcL (0.0-1.3); Monocytes % 9.9 %; Neutrophils # 4.8 K/mcL (1.6-8.9); Platelet Count 137 K/mcL (140-400); Red Blood Count 3.96 M/mcL (4.19-5.50); Red Cell Distribution Width 16.8 % (11.5-14.5); Segmented Neutrophils % 75.4 %; White Blood Count 6.3 K/mcL (4.3-11.1)
[2019-08-26] MEDS ORDERED: Nitroglycerin 0.4 MG TAB.SUBL SL PRN (15:05)
[2019-08-26] MEDS ORDERED: Fluticasone Propionate Nasal 50 MCG/SPRAY BOTTLE NS PRN (15:05)
[2019-08-26] MEDS: Ipratropium/Albuterol Neb 3 ML IH SCH ×3 (15:35→23:14)
[2019-08-26] MEDS: MethylPREDNISolone 40 MG/ML VIAL IVP SCH (17:09)
[2019-08-26] MEDS ORDERED: Latanoprost 2.5 ML BOTTLE LEFT EYE PRN (21:00)
[2019-08-26] MEDS ORDERED: NON-FORMULARY MEDICATION 1 EACH EACH (Brimonidine Tartrate/Timolol [Combigan 0.2%-0.5% Eye LEFT EYE SCH (21:00)
[2019-08-26] MEDS: Insulin DETEMIR 100 UNIT/ML X5UNITS SQ SCH (22:01)
[2019-08-26] MEDS: Levalbuterol Neb 1.25 MG/3 ML IH SCH (23:39)
[2019-08-27] MEDS: Levalbuterol Neb 1.25 MG/3 ML IH SCH ×2 (04:12→20:00)
[2019-08-27] MEDS: Pantoprazole 40 MG VIAL IVP SCH ×2 (05:34→22:26)
[2019-08-27] MEDS: MethylPREDNISolone 40 MG/ML VIAL IVP SCH ×2 (05:34→22:26)
[2019-08-27 06:05] LABS: Hematocrit 33.2 % (37.5-50.1); Hemoglobin 10.7 g/dL (12.9-16.9); Mean Corpuscular HGB Conc 32.2 g/dL (31.6-35.5); Mean Corpuscular Hemoglobin 27.9 pg (28.0-33.3); Mean Corpuscular Volume 86.5 fL (83.0-100.0); Mean Platelet Volume 12.1 fL (9.4-12.4); Platelet Count 132 K/mcL (140-400); Red Blood Count 3.84 M/mcL (4.19-5.50); Red Cell Distribution Width 16.9 % (11.5-14.5); White Blood Count 5.5 K/mcL (4.3-11.1)
[2019-08-27 06:32] LABS: % Iron Saturation 9 % (20-55); Iron 34 mcg/dL (65-175); Transferrin 261 mg/dL (203-362)
[2019-08-27 06:35] LABS: BUN/Creatinine Ratio 23 (6-26); Blood Urea Nitrogen 28 mg/dL (8-23); Calcium 8.9 mg/dL (8.6-10.3); Carbon Dioxide 28 mEq/L (23-29); Chloride 99 mEq/L (98-107); Glucose 191 mg/dL (70-105); Osmolality,Calculated 297 (280-300); Potassium 4.3 mEq/L (3.5-5.1); Sodium 138 mEq/L (136-145); eGFR For African Americans > 60 (> 60); eGFR For Non-African Americans 57 (> 60)
[2019-08-27] MEDS: Budesonide/Formoterol 160/4.5 1 PUFF INH IH SCH ×2 (20:01→22:26)
[2019-08-27] MEDS ORDERED: Acetaminophen 325 MG TABLET PO ONE (22:21)
[2019-08-27] MEDS: Insulin LISPRO 300 UNITS/3 ML VIAL SQ SCH ×2 (22:25→22:31)
[2019-08-27] MEDS: Finasteride 5 MG TABLET PO SCH (22:26)
[2019-08-27] MEDS: Insulin DETEMIR 100 UNIT/ML X5UNITS SQ SCH (22:37)
[2019-08-28] MEDS: Levalbuterol Neb 1.25 MG/3 ML IH SCH ×8 (00:21→23:32)
[2019-08-28] MEDS: MethylPREDNISolone 40 MG/ML VIAL IVP SCH ×2 (06:22→17:05)
[2019-08-28] MEDS: Pantoprazole 40 MG VIAL IVP SCH ×2 (06:22→17:05)
[2019-08-28 07:46] LABS: Hematocrit 35.5 % (37.5-50.1); Hemoglobin 11.6 g/dL (12.9-16.9); Mean Corpuscular HGB Conc 32.7 g/dL (31.6-35.5); Mean Corpuscular Hemoglobin 28.1 pg (28.0-33.3); Mean Platelet Volume 12.3 fL (9.4-12.4); Platelet Count 132 K/mcL (140-400); Red Blood Count 4.13 M/mcL (4.19-5.50); Red Cell Distribution Width 17.1 % (11.5-14.5); White Blood Count 5.7 K/mcL (4.3-11.1)
[2019-08-28] MEDS: Budesonide/Formoterol 160/4.5 1 PUFF INH IH SCH ×2 (07:59→19:48)
[2019-08-28 08:04] LABS: BUN/Creatinine Ratio 33 (6-26); Blood Urea Nitrogen 39 mg/dL (8-23); Calcium 9.3 mg/dL (8.6-10.3); Carbon Dioxide 34 mEq/L (23-29); Chloride 98 mEq/L (98-107); Glucose 314 mg/dL (70-105); Osmolality,Calculated 309 (280-300); Sodium 139 mEq/L (136-145); eGFR For African Americans > 60 (> 60); eGFR For Non-African Americans 59 (> 60)
[2019-08-28] MEDS: Nicotine 21 MG PATCH.TD24 TD SCH (08:07)
[2019-08-28] MEDS: Finasteride 5 MG TABLET PO SCH (08:07)
[2019-08-28] MEDS: Insulin LISPRO 300 UNITS/3 ML VIAL SQ SCH ×3 (08:42→17:05)
[2019-08-28] MEDS ORDERED: SODIUM CHLORIDE/NAHCO3/KCL/PEG 4,000 ML SOLN.RECON PO ONE (17:00)
[2019-08-28] MEDS: Insulin DETEMIR 100 UNIT/ML X5UNITS SQ SCH (22:40)
[2019-08-29] MEDS: Levalbuterol Neb 1.25 MG/3 ML IH SCH ×5 (04:04→20:17)
[2019-08-29 04:15] LABS: Hematocrit 33.9 % (37.5-50.1); Hemoglobin 11.1 g/dL (12.9-16.9); Mean Corpuscular HGB Conc 32.7 g/dL (31.6-35.5); Mean Corpuscular Hemoglobin 27.8 pg (28.0-33.3); Mean Corpuscular Volume 84.8 fL (83.0-100.0); Mean Platelet Volume 12.1 fL (9.4-12.4); Platelet Count 123 K/mcL (140-400); Red Cell Distribution Width 16.7 % (11.5-14.5); White Blood Count 4.5 K/mcL (4.3-11.1)
[2019-08-29 04:34] LABS: BUN/Creatinine Ratio 30 (6-26); Blood Urea Nitrogen 29 mg/dL (8-23); Calcium 9.1 mg/dL (8.6-10.3); Carbon Dioxide 30 mEq/L (23-29); Chloride 98 mEq/L (98-107); Glucose 255 mg/dL (70-105); Osmolality,Calculated 293 (280-300); Potassium 4.3 mEq/L (3.5-5.1); Sodium 134 mEq/L (136-145); eGFR For African Americans > 60 (> 60); eGFR For Non-African Americans > 60 (> 60)
[2019-08-29] MEDS: MethylPREDNISolone 40 MG/ML VIAL IVP SCH ×3 (06:42→17:12)
[2019-08-29] MEDS: Pantoprazole 40 MG VIAL IVP SCH ×2 (06:43→17:12)
[2019-08-29] MEDS: Budesonide/Formoterol 160/4.5 1 PUFF INH IH SCH ×2 (07:13→20:18)
[2019-08-29] MEDS: Insulin LISPRO 300 UNITS/3 ML VIAL SQ SCH ×3 (08:25→17:11)
[2019-08-29] MEDS: Finasteride 5 MG TABLET PO SCH (10:05)
[2019-08-29] MEDS: Nicotine 21 MG PATCH.TD24 TD SCH (10:07)
[2019-08-29] MEDS ORDERED: *HR* Propofol 200 MG/20 ML VIAL IVP ONE (12:16)
[2019-08-29] MEDS ORDERED: *HR* Etomidate 40 MG/20 ML VIAL IVP ONE (12:16)
[2019-08-29] MEDS ORDERED: Lidocaine -MPF 2% 2 ML VIAL ONE (12:16)
[2019-08-29] MEDS ORDERED: Simethicone 40 MG/0.6 ML MLS IR ONE (12:42)
[2019-08-29] MEDS: 0.9 % Sodium Chloride 1,000 ML IVC SCH (13:25)
[2019-08-29] MEDS ORDERED: *HR* Heparin 5,000 UNIT/ML VIAL IVP PRN (15:13)
[2019-08-29] MEDS ORDERED: *HR* Heparin 5,000 UNIT/ML VIAL IVP ONE (15:13)
[2019-08-29] MEDS: Aspirin 81 MG TAB.CHEW PO SCH (17:07)
[2019-08-29] MEDS: Heparin 25,000 UNIT/250 ML D5W 25,000 UNIT/250 ML IV.SOLN IVC SCH (17:08)
[2019-08-29] MEDS: Insulin DETEMIR 100 UNIT/ML X5UNITS SQ SCH (21:40)
[2019-08-30] MEDS ORDERED: Insulin Human Regular 10 UNIT in 0.9 % Sodium Chloride 10 ML IV ONE (00:32)
[2019-08-30] MEDS: Levalbuterol Neb 1.25 MG/3 ML IH SCH ×7 (00:32→23:56)
[2019-08-30] MEDS: MethylPREDNISolone 40 MG/ML VIAL IVP SCH ×3 (02:38→18:04)
[2019-08-30] MEDS: Pantoprazole 40 MG VIAL IVP SCH (05:07)
[2019-08-30 05:51] LABS: Hemoglobin 10.5 g/dL (12.9-16.9); Mean Corpuscular HGB Conc 31.8 g/dL (31.6-35.5); Mean Corpuscular Hemoglobin 27.4 pg (28.0-33.3); Mean Corpuscular Volume 86.2 fL (83.0-100.0); Mean Platelet Volume 12.9 fL (9.4-12.4); Platelet Count 129 K/mcL (140-400); Red Blood Count 3.83 M/mcL (4.19-5.50); White Blood Count 4.7 K/mcL (4.3-11.1)
[2019-08-30] MEDS: *HR* Heparin 5,000 UNIT/ML VIAL IVP PRN (06:32)
[2019-08-30] MEDS: Budesonide/Formoterol 160/4.5 1 PUFF INH IH SCH ×2 (07:32→20:09)
[2019-08-30] MEDS: Insulin LISPRO 300 UNITS/3 ML VIAL SQ SCH ×3 (09:12→18:04)
[2019-08-30] MEDS: 0.9 % Sodium Chloride 1,000 ML IVC SCH (09:12)
[2019-08-30] MEDS: Nicotine 21 MG PATCH.TD24 TD SCH (09:21)
[2019-08-30] MEDS: Aspirin 81 MG TAB.CHEW PO SCH (09:21)
[2019-08-30] MEDS: Finasteride 5 MG TABLET PO SCH (09:21)
[2019-08-30] MEDS: Azithromycin 500 MG in 0.9 % Sodium Chloride 250 ML IVPB SCH (09:26)
[2019-08-30] MEDS: Fluconazole 200 MG/100 ML 200 MG/100 ML BAG IVPB SCH (11:34)
[2019-08-30] MEDS ORDERED: Simethicone 80 MG TAB.CHEW PO PRN (11:51)
[2019-08-30] MEDS: Heparin 25,000 UNIT/250 ML D5W 25,000 UNIT/250 ML IV.SOLN IVC SCH (16:35)
[2019-08-30] MEDS: Insulin DETEMIR 100 UNIT/ML X5UNITS SQ SCH (20:37)
[2019-08-30] MEDS ORDERED: Metoprolol XL (24 HR) Succ 25 MG TAB.ER.24H PO SCH (21:00)
[2019-08-31] MEDS: MethylPREDNISolone 40 MG/ML VIAL IVP SCH ×3 (01:14→17:25)
[2019-08-31 02:37] LABS: Hematocrit 33.4 % (37.5-50.1); Hemoglobin 11.1 g/dL (12.9-16.9); Immature Granulocytes % 0.2 % (0-4); Lymphocytes # 0.3 K/mcL (0.6-4.6); Lymphocytes % 7.9 %; Mean Corpuscular HGB Conc 33.2 g/dL (31.6-35.5); Mean Corpuscular Hemoglobin 27.5 pg (28.0-33.3); Mean Corpuscular Volume 82.9 fL (83.0-100.0); Mean Platelet Volume 12.7 fL (9.4-12.4); Monocytes # 0.2 K/mcL (0.0-1.3); Monocytes % 5.2 %; Neutrophils # 3.5 K/mcL (1.6-8.9); Platelet Count 123 K/mcL (140-400); Red Blood Count 4.03 M/mcL (4.19-5.50); Red Cell Distribution Width 17.1 % (11.5-14.5); Segmented Neutrophils % 86.7 %; White Blood Count 4.1 K/mcL (4.3-11.1)
[2019-08-31 02:54] LABS: BUN/Creatinine Ratio 31 (6-26); Blood Urea Nitrogen 36 mg/dL (8-23); Calcium 8.9 mg/dL (8.6-10.3); Carbon Dioxide 27 mEq/L (23-29); Chloride 102 mEq/L (98-107); Glucose 193 mg/dL (70-105); Osmolality,Calculated 296 (280-300); Potassium 4.5 mEq/L (3.5-5.1); Sodium 136 mEq/L (136-145); eGFR For African Americans > 60 (> 60); eGFR For Non-African Americans 59 (> 60)
[2019-08-31] MEDS: Levalbuterol Neb 1.25 MG/3 ML IH SCH ×5 (03:46→20:47)
[2019-08-31] MEDS: Budesonide/Formoterol 160/4.5 1 PUFF INH IH SCH ×2 (07:45→20:47)
[2019-08-31] MEDS ORDERED: *HR* Heparin 10,000 UNIT/10 ML VIAL ONE (08:43)
[2019-08-31] MEDS ORDERED: Heparin 1,000 UNITS/500 mL 500 ML ONE (08:43)
[2019-08-31] MEDS ORDERED: 0.9 % Sodium Chloride 2,000 ML ONE (08:43)
[2019-08-31] MEDS ORDERED: ISOVUE-370 200 ML INFUS..BTL ONE (08:43)
[2019-08-31] MEDS ORDERED: Nitroglycerin 1,000 MCG/10 ML VIAL IV ONE (08:44)
[2019-08-31] MEDS ORDERED: *HR* Midazolam HCl 2 MG/2 ML VIAL ONE (09:35)
[2019-08-31] MEDS ORDERED: *HR* FentaNYL (PF) 100 MCG/2 ML VIAL ONE (09:36)
[2019-08-31] MEDS: Finasteride 5 MG TABLET PO SCH (09:41)
[2019-08-31] MEDS: Metoprolol XL (24 HR) Succ 25 MG TAB.ER.24H PO SCH ×2 (09:41→21:11)
[2019-08-31] MEDS: Aspirin 81 MG TAB.CHEW PO SCH (09:41)
[2019-08-31] MEDS: Insulin LISPRO 300 UNITS/3 ML VIAL SQ SCH ×3 (10:13→18:40)
[2019-08-31] MEDS: Azithromycin 500 MG in 0.9 % Sodium Chloride 250 ML IVPB SCH (14:23)
[2019-08-31] MEDS: Nicotine 21 MG PATCH.TD24 TD SCH (14:24)
[2019-08-31] MEDS: Fluconazole 200 MG/100 ML 200 MG/100 ML BAG IVPB SCH (16:02)
[2019-08-31] MEDS: Heparin 25,000 UNIT/250 ML D5W 25,000 UNIT/250 ML IV.SOLN IVC SCH (17:24)
[2019-08-31] MEDS: *HR* Heparin 5,000 UNIT/ML VIAL IVP PRN (17:25)
[2019-08-31] MEDS: Insulin DETEMIR 100 UNIT/ML X5UNITS SQ SCH (21:11)
[2019-08-31] MEDS: Apixaban 5 MG TABLET PO SCH (21:11)
[2019-09-01] MEDS: Levalbuterol Neb 1.25 MG/3 ML IH SCH ×4 (00:02→11:05)
[2019-09-01 05:18] LABS: BUN/Creatinine Ratio 33 (6-26); Blood Urea Nitrogen 39 mg/dL (8-23); Calcium 9.1 mg/dL (8.6-10.3); Carbon Dioxide 27 mEq/L (23-29); Chloride 104 mEq/L (98-107); Glucose 70 mg/dL (70-105); Osmolality,Calculated 296 (280-300); Potassium 4.9 mEq/L (3.5-5.1); Sodium 139 mEq/L (136-145); eGFR For African Americans > 60 (> 60); eGFR For Non-African Americans 58 (> 60)
[2019-09-01] MEDS: MethylPREDNISolone 40 MG/ML VIAL IVP SCH (05:30)
[2019-09-01 06:16] LABS: Basophils % 0.2 %; Hematocrit 35.8 % (37.5-50.1); Hemoglobin 11.5 g/dL (12.9-16.9); Immature Granulocytes % 0.6 % (0-4); Lymphocytes # 0.4 K/mcL (0.6-4.6); Lymphocytes % 8.2 %; Mean Corpuscular HGB Conc 32.1 g/dL (31.6-35.5); Mean Corpuscular Hemoglobin 28.3 pg (28.0-33.3); Mean Platelet Volume 13.3 fL (9.4-12.4); Monocytes # 0.4 K/mcL (0.0-1.3); Monocytes % 7.2 %; Neutrophils # 4.3 K/mcL (1.6-8.9); Platelet Count 120 K/mcL (140-400); Red Blood Count 4.07 M/mcL (4.19-5.50); Red Cell Distribution Width 17.2 % (11.5-14.5); Segmented Neutrophils % 83.8 %; White Blood Count 5.1 K/mcL (4.3-11.1)
[2019-09-01] MEDS: Budesonide/Formoterol 160/4.5 1 PUFF INH IH SCH (07:52)
[2019-09-01] MEDS: Nicotine 21 MG PATCH.TD24 TD SCH ×2 (08:32→08:48)
[2019-09-01] MEDS: Metoprolol XL (24 HR) Succ 25 MG TAB.ER.24H PO SCH (08:33)
[2019-09-01] MEDS: Azithromycin 500 MG in 0.9 % Sodium Chloride 250 ML IVPB SCH (08:33)
[2019-09-01] MEDS: Apixaban 5 MG TABLET PO SCH (08:33)
[2019-09-01] MEDS: Finasteride 5 MG TABLET PO SCH (08:34)
[2019-09-01] MEDS: Insulin LISPRO 300 UNITS/3 ML VIAL SQ SCH ×2 (08:35→12:08)
[2019-09-01] MEDS: Aspirin 81 MG TAB.CHEW PO SCH (08:35)
[2019-09-01] MEDS: Fluconazole 200 MG/100 ML 200 MG/100 ML BAG IVPB SCH (08:36)
[2019-09-01] MEDS ORDERED: predniSONE 20 MG TABLET PO SCH (09:00)
[2019-09-01 10:53] VITALS: BP 107/82
[2019-09-02] MEDS ORDERED: Furosemide 20 MG TABLET PO SCH (09:00)
== END 2019-09-01 16:08 | disposition home health service (06) | DRG 287 ==
LOC: EMEROOARM 13:16 → 2NENU 17:49 → SUATTDRO 17:49 → 2NENU 18:30
PROVIDERS: ADMIT Student in an Organized Health Care Education/Training Program; ATTEND Internal Medicine

== ENCOUNTER 2019-10-21 16:43 | Observation (INO) ==
[2019-10-21 17:31] LABS: Basophils % 0.3 %; Eosinophils # 0.1 K/mcL (0.0-0.6); Eosinophils % 1.3 %; Hemoglobin 11.6 g/dL (12.9-16.9); Immature Granulocytes % 0.7 % (0-4); Lymphocytes # 0.4 K/mcL (0.6-4.6); Lymphocytes % 5.4 %; Mean Corpuscular HGB Conc 33.1 g/dL (31.6-35.5); Mean Corpuscular Hemoglobin 27.9 pg (28.0-33.3); Mean Corpuscular Volume 84.1 fL (83.0-100.0); Mean Platelet Volume 12.9 fL (9.4-12.4); Monocytes # 0.5 K/mcL (0.0-1.3); Monocytes % 6.3 %; Neutrophils # 6.6 K/mcL (1.6-8.9); Platelet Count 141 K/mcL (140-400); Red Blood Count 4.16 M/mcL (4.19-5.50); Red Cell Distribution Width 17.8 % (11.5-14.5); White Blood Count 7.6 K/mcL (4.3-11.1)
[2019-10-21 17:52] LABS: BUN/Creatinine Ratio 28 (6-26); Blood Urea Nitrogen 34 mg/dL (8-23); Calcium 9.4 mg/dL (8.6-10.3); Carbon Dioxide 25 mEq/L (23-29); Chloride 102 mEq/L (98-107); Glucose 256 mg/dL (70-105); Osmolality,Calculated 302 (280-300); Potassium 3.8 mEq/L (3.5-5.1); Sodium 138 mEq/L (136-145); eGFR For African Americans > 60 (> 60); eGFR For Non-African Americans 58 (> 60)
[2019-10-21 17:56] LABS: Troponin I 0.06 ng/mL (< 0.04)
[2019-10-21] MEDS ORDERED: Nitroglycerin 0.4 MG TAB.SUBL SL STA (18:36)
[2019-10-21] MEDS ORDERED: Nitroglycerin 1 INCH/GM PACKET TP ONE (18:36)
[2019-10-21] MEDS ORDERED: Furosemide 40 MG/4 ML VIAL IVP ONE (18:36)
[2019-10-21] MEDS ORDERED: *HR* Dextrose 50 % in Water (Syg) 50 ML SYRINGE IVP PRN (21:21)
[2019-10-21] MEDS ORDERED: Dextrose Gel 15 GM/37.5 ML TUBE PO PRN ×2 (21:21)
[2019-10-21] MEDS ORDERED: Acetaminophen 325 MG TABLET PO PRN (21:23)
[2019-10-21] MEDS ORDERED: Ondansetron 4 MG/2 ML VIAL IVP PRN (21:23)
[2019-10-21] MEDS: Ipratropium/Albuterol Neb 3 ML IH SCH (22:54)
[2019-10-21] MEDS: Budesonide/Formoterol 160/4.5 1 PUFF INH IH SCH (22:55)
[2019-10-21] MEDS: Apixaban 5 MG TABLET PO SCH (23:01)
[2019-10-21] MEDS: Insulin LISPRO 300 UNITS/3 ML VIAL SQ SCH (23:01)
[2019-10-22] MEDS: Ipratropium/Albuterol Neb 3 ML IH SCH (04:30)
[2019-10-22] MEDS: Furosemide 40 MG/4 ML VIAL IVP SCH ×2 (09:31→20:39)
[2019-10-22] MEDS: Metoprolol XL (24 HR) Succ 50 MG TAB.ER.24H PO SCH (09:31)
[2019-10-22] MEDS: Finasteride 5 MG TABLET PO SCH (09:31)
[2019-10-22] MEDS: Apixaban 5 MG TABLET PO SCH ×2 (09:31→20:37)
[2019-10-22] MEDS: Cholecalciferol (D-3) 1,000 UNIT (25MCG) TABLET PO SCH (09:32)
[2019-10-22] MEDS: Cyanocobalamin (B-12) 1,000 MCG TABLET PO SCH (09:32)
[2019-10-22] MEDS: Insulin LISPRO 300 UNITS/3 ML VIAL SQ SCH ×4 (09:34→20:37)
[2019-10-22] MEDS: Budesonide/Formoterol 160/4.5 1 PUFF INH IH SCH ×2 (10:43→20:22)
[2019-10-22] MEDS: Ipratropium/Albuterol Neb 3 ML IH PRN (10:43)
[2019-10-22] MEDS: Nicotine 21 MG PATCH.TD24 TD SCH (16:25)
[2019-10-23] MEDS: Ipratropium/Albuterol Neb 3 ML IH PRN ×2 (02:25→08:18)
[2019-10-23 03:02] LABS: Basophils % 0.4 %; Eosinophils # 0.3 K/mcL (0.0-0.6); Hematocrit 34.3 % (37.5-50.1); Hemoglobin 11.6 g/dL (12.9-16.9); Immature Granulocytes % 0.6 % (0-4); Lymphocytes # 0.7 K/mcL (0.6-4.6); Lymphocytes % 9.8 %; Mean Corpuscular HGB Conc 33.8 g/dL (31.6-35.5); Mean Corpuscular Hemoglobin 27.8 pg (28.0-33.3); Mean Corpuscular Volume 82.1 fL (83.0-100.0); Mean Platelet Volume 11.8 fL (9.4-12.4); Monocytes # 0.8 K/mcL (0.0-1.3); Monocytes % 10.4 %; Neutrophils # 5.4 K/mcL (1.6-8.9); Platelet Count 145 K/mcL (140-400); Red Blood Count 4.18 M/mcL (4.19-5.50); Red Cell Distribution Width 17.7 % (11.5-14.5); Segmented Neutrophils % 74.8 %; White Blood Count 7.2 K/mcL (4.3-11.1)
[2019-10-23 03:11] LABS: BUN/Creatinine Ratio 30 (6-26); Blood Urea Nitrogen 32 mg/dL (8-23); Calcium 8.9 mg/dL (8.6-10.3); Carbon Dioxide 32 mEq/L (23-29); Chloride 96 mEq/L (98-107); Glucose 89 mg/dL (70-105); Magnesium 1.6 mg/dL (1.6-2.6); Osmolality,Calculated 292 (280-300); Sodium 138 mEq/L (136-145); eGFR For African Americans > 60 (> 60); eGFR For Non-African Americans > 60 (> 60)
[2019-10-23 03:23] LABS: Thyroid Stimulating Hormone 4.012 mcIU/mL (0.340-5.600)
[2019-10-23 06:57] LABS: Estimated Average Glucose 206 mg/dl
[2019-10-23 07:42] VITALS: BP 108/84
[2019-10-23] MEDS ORDERED: Furosemide 40 MG TABLET PO SCH (08:00)
[2019-10-23] MEDS ORDERED: Potassium Chloride 40 MEQ, Lidocaine 1% 2 ML in 0.9 % Sodium Chloride 500 ML IVPB ONE (08:01)
[2019-10-23] MEDS: Budesonide/Formoterol 160/4.5 1 PUFF INH IH SCH (08:19)
[2019-10-23] MEDS ORDERED: Spironolactone 25 MG TABLET PO SCH (09:00)
[2019-10-23] MEDS: Insulin LISPRO 300 UNITS/3 ML VIAL SQ SCH ×2 (10:02→13:19)
[2019-10-23] MEDS: Metoprolol XL (24 HR) Succ 50 MG TAB.ER.24H PO SCH (10:12)
[2019-10-23] MEDS: Finasteride 5 MG TABLET PO SCH (10:15)
[2019-10-23] MEDS: Cyanocobalamin (B-12) 1,000 MCG TABLET PO SCH (10:15)
[2019-10-23] MEDS: Apixaban 5 MG TABLET PO SCH (10:19)
[2019-10-23] MEDS: Cholecalciferol (D-3) 1,000 UNIT (25MCG) TABLET PO SCH (10:19)
[2019-10-23] MEDS: Nicotine 21 MG PATCH.TD24 TD SCH (10:23)
[2019-10-23] MEDS ORDERED: Potassium Chloride Elixir 20 MEQ/15 ML UDC PO ONE ×2 (10:30→12:30)
== END 2019-10-23 16:48 | disposition home or self-care (01) ==
LOC: EMEROOARM 16:43 → 2NENU 16:43 → SUATTDRO 19:32 → 2NENU 20:12
PROVIDERS: ADMIT Internal Medicine; ATTEND Pharmacist

== ENCOUNTER 2019-12-06 16:45 | Observation (INO) ==
[2019-12-06] MEDS ORDERED: 0.9 % Sodium Chloride 1,000 ML IVC ONE (17:23)
[2019-12-06 18:03] LABS: Basophils # 0.1 K/mcL (0.0-0.2); Basophils % 1.1 %; Eosinophils # 0.5 K/mcL (0.0-0.6); Eosinophils % 7.4 %; Hematocrit 39.1 % (37.5-50.1); Hemoglobin 12.8 g/dL (12.9-16.9); Immature Granulocytes % 0.5 % (0-4); Lymphocytes # 1.2 K/mcL (0.6-4.6); Lymphocytes % 18.7 %; Mean Corpuscular HGB Conc 32.7 g/dL (31.6-35.5); Mean Corpuscular Hemoglobin 28.1 pg (28.0-33.3); Mean Corpuscular Volume 85.9 fL (83.0-100.0); Mean Platelet Volume 11.6 fL (9.4-12.4); Monocytes # 0.6 K/mcL (0.0-1.3); Platelet Count 167 K/mcL (140-400); Red Blood Count 4.55 M/mcL (4.19-5.50); Red Cell Distribution Width 17.7 % (11.5-14.5); Segmented Neutrophils % 63.3 %; White Blood Count 6.3 K/mcL (4.3-11.1)
[2019-12-06 18:11] LABS: INR 1.3; Prothrombin Time 15.2 Seconds (9.4-12.1)
[2019-12-06 18:13] LABS: Activated Partial Thrombo Time 35.3 Seconds (26.0-36.0)
[2019-12-06 18:22] LABS: Troponin I 0.05 ng/mL (< 0.04)
[2019-12-06 18:38] LABS: BUN/Creatinine Ratio 21 (6-26); Blood Urea Nitrogen 22 mg/dL (8-23); Calcium 9.2 mg/dL (8.6-10.3); Carbon Dioxide 23 mEq/L (23-29); Chloride 105 mEq/L (98-107); Glucose 113 mg/dL (70-105); Osmolality,Calculated 288 (280-300); Potassium 3.6 mEq/L (3.5-5.1); Sodium 137 mEq/L (136-145); eGFR For African Americans > 60 (> 60); eGFR For Non-African Americans > 60 (> 60)
[2019-12-06] MEDS ORDERED: Naloxone 0.4 MG/ML INJ IVP PRN (21:42)
[2019-12-07 02:07] LABS: Bilirubin,Urine Negative (Negative); Blood,Urine Negative (Negative); Clarity,Urine Clear (Clear); Color,Urine Yellow (Yellow); Glucose,Urine (UA) Normal (Normal); Ketones,Urine Negative (Negative); Leukocyte Esterase,Urine Negative (Negative); Nitrite,Urine Negative (Negative); Protein,Urine Negative (Neg-Trace); Specific Gravity,Urine 1.023 (1.010-1.025); Urobilinogen,Urine Normal (Normal)
[2019-12-07] MEDS ORDERED: Simethicone 80 MG TAB.CHEW PO PRN (04:00)
[2019-12-07 04:35] LABS: Hematocrit 38.7 % (37.5-50.1); Hemoglobin 12.5 g/dL (12.9-16.9); Mean Corpuscular HGB Conc 32.3 g/dL (31.6-35.5); Mean Corpuscular Hemoglobin 27.7 pg (28.0-33.3); Mean Corpuscular Volume 85.8 fL (83.0-100.0); Platelet Count 160 K/mcL (140-400); Red Blood Count 4.51 M/mcL (4.19-5.50); Red Cell Distribution Width 17.8 % (11.5-14.5); White Blood Count 5.2 K/mcL (4.3-11.1)
[2019-12-07 04:38] LABS: INR 1.1; Prothrombin Time 12.3 Seconds (9.4-12.1)
[2019-12-07] MEDS: Levalbuterol Neb 1.25 MG/3 ML IH SCH ×4 (04:42→22:07)
[2019-12-07 04:52] LABS: Alanine Aminotransferase 11 Units/L (7-52); Albumin 3.4 g/dL (3.5-5.7); Albumin/Globulin Ratio 1.1 (1.1-2.2); Alkaline Phosphatase 66 Units/L (34-104); Aspartate Amino Transferase 14 Units/L (13-39); BUN/Creatinine Ratio 24 (6-26); Bilirubin,Total 0.5 mg/dL (0.3-1.0); Blood Urea Nitrogen 23 mg/dL (8-23); Calcium 8.7 mg/dL (8.6-10.3); Carbon Dioxide 25 mEq/L (23-29); Chloride 105 mEq/L (98-107); Chol/HDL Ratio 4.1 (0-4.9); Cholesterol 169 mg/dL (< 200); Globulin 3.1 g/dL (2.4-3.5); Glucose 154 mg/dL (70-105); HDL Cholesterol 41 mg/dL (40-59); LDL Cholesterol,Calculated 87 mg/dL (0-99); Osmolality,Calculated 299 (280-300); Potassium 3.6 mEq/L (3.5-5.1); Sodium 141 mEq/L (136-145); Total Protein 6.5 g/dL (6.4-8.9); Triglycerides 205 mg/dL (< 150); eGFR For African Americans > 60 (> 60); eGFR For Non-African Americans > 60 (> 60)
[2019-12-07] MEDS: Budesonide/Formoterol 160/4.5 1 PUFF INH IH SCH ×2 (09:25→22:07)
[2019-12-07 09:39] LABS: Estimated Average Glucose 197 mg/dl
[2019-12-07] MEDS: Spironolactone 25 MG TABLET PO SCH (10:25)
[2019-12-07] MEDS: Furosemide 40 MG TABLET PO SCH (10:25)
[2019-12-07] MEDS: Apixaban 5 MG TABLET PO SCH ×2 (10:25→21:07)
[2019-12-07] MEDS: Finasteride 5 MG TABLET PO SCH (10:26)
[2019-12-07] MEDS: Multivit/Ca/Min/Fe/FA 1 TAB TABLET PO SCH (10:26)
[2019-12-07] MEDS: Nicotine 21 MG PATCH.TD24 TD SCH (12:46)
[2019-12-07] MEDS ORDERED: Metoprolol XL (24 HR) Succ 50 MG TAB.ER.24H PO SCH ×2 (18:00→21:00)
[2019-12-08] MEDS: Levalbuterol Neb 1.25 MG/3 ML IH SCH ×2 (03:27→10:57)
[2019-12-08 06:50] VITALS: BP 122/82
[2019-12-08] MEDS: Finasteride 5 MG TABLET PO SCH (08:49)
[2019-12-08] MEDS: Multivit/Ca/Min/Fe/FA 1 TAB TABLET PO SCH (08:50)
[2019-12-08] MEDS: Nicotine 21 MG PATCH.TD24 TD SCH (08:50)
[2019-12-08] MEDS: Furosemide 40 MG TABLET PO SCH (08:50)
[2019-12-08] MEDS: Spironolactone 25 MG TABLET PO SCH (08:50)
[2019-12-08] MEDS: Apixaban 5 MG TABLET PO SCH (08:50)
[2019-12-08] MEDS ORDERED: Metoprolol XL (24 HR) Succ 50 MG TAB.ER.24H PO SCH (09:00)
[2019-12-08] MEDS: Budesonide/Formoterol 160/4.5 1 PUFF INH IH SCH (10:57)
== END 2019-12-08 12:21 | disposition home or self-care (01) ==
LOC: EMEROOARM 16:45 → 3BNU 16:45 → SUATTDRO 21:23 → 3BNU 21:47 → 3ANU 12-07 05:50
PROVIDERS: ADMIT Internal Medicine; ATTEND Internal Medicine

== ENCOUNTER 2021-01-10 18:46 | Observation (INO) ==
[2021-01-10] MEDS ORDERED: Isovue-370 500 ML BOTTLE IVP ONE (19:29)
[2021-01-10] MEDS ORDERED: Ipratropium/Albuterol Neb 3 ML IH ONE (19:42)
[2021-01-10 19:51] LABS: Basophils # 0.1 K/mcL (0.0-0.2); Basophils % 0.7 %; Eosinophils # 0.5 K/mcL (0.0-0.6); Eosinophils % 5.3 %; Hematocrit 26.6 % (37.5-50.1); Hemoglobin 8.7 g/dL (12.9-16.9); Immature Granulocytes % 1.1 % (0-4); Lymphocytes # 0.8 K/mcL (0.6-4.6); Lymphocytes % 9.3 %; Mean Corpuscular HGB Conc 32.7 g/dL (31.6-35.5); Mean Corpuscular Hemoglobin 30.3 pg (28.0-33.3); Mean Corpuscular Volume 92.7 fL (83.0-100.0); Mean Platelet Volume 10.5 fL (9.4-12.4); Monocytes # 0.8 K/mcL (0.0-1.3); Monocytes % 8.9 %; Neutrophils # 6.3 K/mcL (1.6-8.9); Platelet Count 255 K/mcL (140-400); Red Blood Count 2.87 M/mcL (4.19-5.50); Red Cell Distribution Width 14.7 % (11.5-14.5); Segmented Neutrophils % 74.7 %; White Blood Count 8.5 K/mcL (4.3-11.1)
[2021-01-10 20:03] LABS: INR 1.4; Prothrombin Time 15.6 Seconds (9.4-12.1)
[2021-01-10 20:06] LABS: Activated Partial Thrombo Time 31.3 Seconds (26.0-36.0)
[2021-01-10 20:11] LABS: Albumin/Globulin Ratio 1.2 (1.1-2.2); Bilirubin,Direct 0.1 mg/dL (0.0-0.2); Bilirubin,Indirect 0.6 mg/dL (0.0-1.0); Bilirubin,Total 0.7 mg/dL (0.3-1.0); Globulin 3.3 g/dL (2.4-3.5); Potassium 4.3 mEq/L (3.5-5.1); Total Protein 7.3 g/dL (6.4-8.9)
[2021-01-11] MEDS ORDERED: Acetaminophen 325 MG TABLET PO PRN (01:24)
[2021-01-11] MEDS ORDERED: Dextrose Gel 15 GM/37.5 ML TUBE PO PRN ×2 (01:24)
[2021-01-11] MEDS ORDERED: Naloxone 0.4 MG/ML INJ IVP PRN (01:24)
[2021-01-11] MEDS ORDERED: D5% in Water 1,000 ML IVC PRN (01:24)
[2021-01-11] MEDS ORDERED: *HR* HYDROcodone/Acet 5/325 mg TABLET PO PRN (01:24)
[2021-01-11] MEDS ORDERED: *HR* Dextrose 50 % in Water (Vial) 50 ML VIAL IVP PRN (01:24)
[2021-01-11] MEDS ORDERED: *HR* OxyCODONE Immed Rel 5 MG TABLET PO PRN (01:24)
[2021-01-11] MEDS ORDERED: Ondansetron 4 MG/2 ML VIAL IVP PRN (01:24)
[2021-01-11] MEDS ORDERED: Ipratropium/Albuterol Neb 3 ML IH PRN (01:26)
[2021-01-11 02:28] LABS: Basophils % 0.4 %; Eosinophils # 0.4 K/mcL (0.0-0.6); Eosinophils % 4.2 %; Hematocrit 25.9 % (37.5-50.1); Hemoglobin 8.4 g/dL (12.9-16.9); Immature Granulocytes % 0.6 % (0-4); Lymphocytes % 11.6 %; Mean Corpuscular HGB Conc 32.4 g/dL (31.6-35.5); Mean Corpuscular Hemoglobin 30.5 pg (28.0-33.3); Mean Corpuscular Volume 94.2 fL (83.0-100.0); Mean Platelet Volume 10.7 fL (9.4-12.4); Monocytes # 0.8 K/mcL (0.0-1.3); Monocytes % 9.1 %; Neutrophils # 6.2 K/mcL (1.6-8.9); Platelet Count 254 K/mcL (140-400); Red Blood Count 2.75 M/mcL (4.19-5.50); Red Cell Distribution Width 14.9 % (11.5-14.5); Segmented Neutrophils % 74.1 %; White Blood Count 8.3 K/mcL (4.3-11.1)
[2021-01-11 02:44] LABS: BUN/Creatinine Ratio 29 (6-26); Blood Urea Nitrogen 38 mg/dL (8-23); Calcium 8.8 mg/dL (8.6-10.3); Carbon Dioxide 25 mEq/L (23-29); Chloride 100 mEq/L (98-107); Glucose 188 mg/dL (70-105); Magnesium 1.9 mg/dL (1.6-2.6); Osmolality,Calculated 294 (280-300); Sodium 135 mEq/L (136-145); eGFR For African Americans > 60 (> 60); eGFR For Non-African Americans 52 (> 60)
[2021-01-11] MEDS: FLUTICASONE IH SCH ×2 (08:15→22:14)
[2021-01-11] MEDS: SALMETEROL IH SCH ×2 (08:15→22:14)
[2021-01-11] MEDS: Furosemide 40 MG TABLET PO SCH (08:47)
[2021-01-11] MEDS: Metoprolol XL (24 HR) Succ 50 MG TAB.ER.24H PO SCH ×2 (08:47→20:45)
[2021-01-11] MEDS: Multivit/Ca/Min/Fe/FA 1 TAB TABLET PO SCH (08:48)
[2021-01-11] MEDS: Insulin LISPRO 300 UNITS/3 ML VIAL SUBQ SCH ×3 (08:48→17:41)
[2021-01-11] MEDS: Spironolactone 25 MG TABLET PO SCH (08:51)
[2021-01-11] MEDS: Budesonide/Formoterol 160/4.5 1 PUFF INH IH SCH ×2 (10:41→22:14)
[2021-01-11] MEDS: Levalbuterol Neb 1.25 MG/3 ML IH SCH ×3 (10:44→22:14)
[2021-01-11 14:23] LABS: Basophils % 0.4 %; Eosinophils # 0.4 K/mcL (0.0-0.6); Eosinophils % 5.1 %; Hematocrit 26.6 % (37.5-50.1); Hemoglobin 8.6 g/dL (12.9-16.9); Immature Granulocytes % 0.7 % (0-4); Lymphocytes # 0.9 K/mcL (0.6-4.6); Lymphocytes % 11.1 %; Mean Corpuscular HGB Conc 32.3 g/dL (31.6-35.5); Mean Corpuscular Hemoglobin 30.3 pg (28.0-33.3); Mean Corpuscular Volume 93.7 fL (83.0-100.0); Mean Platelet Volume 10.4 fL (9.4-12.4); Monocytes # 0.7 K/mcL (0.0-1.3); Monocytes % 9.3 %; Neutrophils # 5.6 K/mcL (1.6-8.9); Platelet Count 255 K/mcL (140-400); Red Blood Count 2.84 M/mcL (4.19-5.50); Red Cell Distribution Width 14.9 % (11.5-14.5); Segmented Neutrophils % 73.4 %; White Blood Count 7.6 K/mcL (4.3-11.1)
[2021-01-11] MEDS ORDERED: Insulin LISPRO 300 UNITS/3 ML VIAL SUBQ ONE (20:03)
[2021-01-11] MEDS: Nicotine 21 MG PATCH.TD24 TD SCH (20:45)
[2021-01-12] MEDS: Levalbuterol Neb 1.25 MG/3 ML IH SCH ×2 (03:49→10:42)
[2021-01-12 06:03] LABS: Basophils % 0.3 %; Eosinophils # 0.4 K/mcL (0.0-0.6); Eosinophils % 4.6 %; Hematocrit 26.8 % (37.5-50.1); Hemoglobin 8.6 g/dL (12.9-16.9); Immature Granulocytes % 0.8 % (0-4); Mean Corpuscular HGB Conc 32.1 g/dL (31.6-35.5); Mean Corpuscular Hemoglobin 30.4 pg (28.0-33.3); Mean Corpuscular Volume 94.7 fL (83.0-100.0); Mean Platelet Volume 10.5 fL (9.4-12.4); Monocytes # 0.8 K/mcL (0.0-1.3); Monocytes % 9.8 %; Neutrophils # 5.6 K/mcL (1.6-8.9); Platelet Count 255 K/mcL (140-400); Red Blood Count 2.83 M/mcL (4.19-5.50); Segmented Neutrophils % 71.5 %; White Blood Count 7.9 K/mcL (4.3-11.1)
[2021-01-12 08:13] VITALS: BP 122/69
[2021-01-12] MEDS: Multivit/Ca/Min/Fe/FA 1 TAB TABLET PO SCH (08:31)
[2021-01-12] MEDS: Furosemide 40 MG TABLET PO SCH (08:31)
[2021-01-12] MEDS: Spironolactone 25 MG TABLET PO SCH (08:32)
[2021-01-12] MEDS: Metoprolol XL (24 HR) Succ 50 MG TAB.ER.24H PO SCH (08:32)
[2021-01-12] MEDS: Nicotine 21 MG PATCH.TD24 TD SCH (08:33)
[2021-01-12] MEDS: Insulin LISPRO 300 UNITS/3 ML VIAL SUBQ SCH (08:34)
[2021-01-12] MEDS: SALMETEROL IH SCH (08:45)
[2021-01-12] MEDS: FLUTICASONE IH SCH (08:45)
[2021-01-12] MEDS: Budesonide/Formoterol 160/4.5 1 PUFF INH IH SCH (10:42)
== END 2021-01-12 11:43 | disposition home health service (06) ==
LOC: 3BNU 18:46 → EMEROOARM 18:46 → SUATTDRO 23:14 → 3BNU 01-11 00:13
PROVIDERS: ADMIT Internal Medicine; ATTEND Internal Medicine